=== PATIENT | female | born 1980 | race Caucasian/White ===

== ENCOUNTER → 2020-04-03 09:25 | Outpatient (BNVA) | payer OTHER, SELFPAY | PROVIDERS: PCP Internal Medicine; Referring Provider Internal Medicine; Visit Provider Student in an Organized Health Care Education/Training Program | DX: Z76.89 Persons encountering health services in other specified circumstances (principal) ==

== ENCOUNTER 2020-04-10 11:47 | Outpatient (REF) | payer OTHER, SELFPAY ==
[2020-04-10 13:52] LABS: MANUAL DIFF FLAG NO
[2020-04-10 13:57] LABS: Basophils Absolute Auto 0.1 X10*3/uL (0.0-0.2); Basophils Percent Auto 0.9 % (0-2); Eosinophils Absolute Auto 0.1 X10*3/uL (0.0-0.4); Eosinophils Percent Auto 1.1 % (0-4); Hematocrit 38.2 % (37-47); Hemoglobin 12.1 g/dl (12.0-16.0); Imm Gran Abs Auto 0.01 X10*3/uL (0.00-0.03); Imm Gran Pct Auto 0.2 % (0.0-0.4); Lymphocytes Absolute Auto 1.6 X10*3/uL (1.2-4.9); Mean Corpuscular HGB Conc 31.7 g/dl (31.0-35.0); Mean Corpuscular Hemoglobin 28.4 pg (27.0-33.0); Mean Corpuscular Volume 89.7 fL (80-98); Mean Platelet Volume 11.3 fL (9.4-12.3); Monocytes Absolute Auto 0.5 X10*3/uL (0.1-1.2); Neutrophils Absolute Auto 3.1 X10*3/uL (2.0-8.3); Neutrophils Percent Auto 57.8 % (45-73); Platelet Count 266 X10*3/uL (160-400); Red Blood Count 4.26 X10*6/uL (4.20-5.50); Red Cell Distribution Width 13.6 % (11.0-16.0); White Blood Count 5.4 X10*3/uL (4.8-10.8)
[2020-04-10 14:18] LABS: Glucose Urine UA NEG (NEG); Leukocyte Esterase Urine NEG (NEG); Nitrite Urine NEG (NEG); PH 6.5 (5.0-8.0); Specific Gravity - Urine <= 1.005 (1.005-1.025); Urine Blood NEG (NEG); Urine Ketones NEG (NEG); Urine Protein NEG (NEG-TRACE)
[2020-04-10 14:23] LABS: Appearance Urine CLEAR; Color Urine YELLOW
[2020-04-10 14:29] LABS: Alanine Aminotransferase 8 U/L (0-31); Albumin Level 4.4 g/dL (3.5-5.0); Alkaline Phosphatase 73 U/L (39-117); Anion Gap 13 (12-20); Aspartate Amino Transferase 17 U/L (5-31); Bilirubin Total 0.5 mg/dL (0.0-1.0); Blood Urea Nitrogen 12 mg/dL (9-16); C Reactive Protein 0.11 mg/dL (< or = 0.50); Calcium 8.9 mg/dL (8.4-10.2); Carbon Dioxide 23 mmol/L (22-29); Chloride 106 mmol/L (96-108); Estimated Glomerular Filt Rate > 60; Glucose Random 81 mg/dL (60-115); Potassium 4.2 mmol/l (3.3-5.1); Sodium 138 mmol/L (135-145); Total Protein 8.2 g/dL (6.5-8.0)
[2020-04-10 14:43] LABS: RBC Urine 0 /HPF (0); Squamous Epithelial Cell Urine 1+ /LPF; WBC Urine 0 /HPF (0-4)
[2020-04-10 14:44] LABS: Erythrocyte Sedimentation Rate 12 MM/HR (0-20)
[2020-04-11 13:33] LABS: Anti DNA DS Antibody <1 IU/mL; SM/Ribonucleoprotein Ab <1.0 NEG AI (<1.0 NEG); Smith Protein <1.0 NEG AI (<1.0 NEG)
[2020-04-12 12:33] LABS: Complement C3 111 mg/dL (83-193)
== END 2020-04-10 11:48 | disposition home or self-care (01) ==
LOC: HO.HMGCLDS 11:47
PROVIDERS: PCP Internal Medicine; Visit Provider Student in an Organized Health Care Education/Training Program
DX: R76.8 Other specified abnormal immunological findings in serum (principal)
CPT/HCPCS: 36415; 80053; 81001; 85025; 85652; 86140; 86160; 86225; 86235

== ENCOUNTER → 2020-11-14 10:47 | Outpatient (BNVA) | payer OTHER, SELFPAY | PROVIDERS: PCP Internal Medicine; Visit Provider Student in an Organized Health Care Education/Training Program | DX: R76.8 Other specified abnormal immunological findings in serum (principal); I73.00 Raynaud's syndrome without gangrene; L71.9 Rosacea, unspecified; M79.7 Fibromyalgia | CPT/HCPCS: 99212 ==

== ENCOUNTER 2020-11-15 09:05 | Outpatient (REF) | payer OTHER, SELFPAY ==
[2020-11-15 11:25] LABS: Glucose Urine UA NEG (NEG); Leukocyte Esterase Urine NEG (NEG); Nitrite Urine NEG (NEG); PH 6.5 (5.0-8.0); Specific Gravity - Urine <= 1.005 (1.005-1.025); Urine Blood NEG (NEG); Urine Ketones NEG (NEG); Urine Protein NEG (NEG-TRACE)
[2020-11-15 11:27] LABS: MANUAL DIFF FLAG NO
[2020-11-15 11:29] LABS: Appearance Urine CLEAR; Color Urine STRAW
[2020-11-15 11:34] LABS: RBC Urine 0 /HPF (0); Squamous Epithelial Cell Urine 1+ /LPF; WBC Urine 0 /HPF (0-4)
[2020-11-15 11:39] LABS: Basophils Absolute Auto 0.1 X10*3/uL (0.0-0.2); Basophils Percent Auto 1.2 % (0-2); Eosinophils Absolute Auto 0.1 X10*3/uL (0.0-0.4); Eosinophils Percent Auto 1.2 % (0-4); Hematocrit 37.2 % (37-47); Hemoglobin 11.7 g/dl (12.0-16.0); Lymphocytes Absolute Auto 1.3 X10*3/uL (1.2-4.9); Lymphocytes Percent Auto 33.2 % (20-40); Mean Corpuscular HGB Conc 31.5 g/dl (31.0-35.0); Mean Corpuscular Hemoglobin 27.7 pg (27.0-33.0); Mean Corpuscular Volume 87.9 fL (80-98); Mean Platelet Volume 11.6 fL (9.4-12.3); Monocytes Absolute Auto 0.4 X10*3/uL (0.1-1.2); Neutrophils Absolute Auto 2.1 X10*3/uL (2.0-8.3); Neutrophils Percent Auto 53.4 % (45-73); Platelet Count 259 X10*3/uL (160-400); Red Blood Count 4.23 X10*6/uL (4.20-5.50); Red Cell Distribution Width 14.9 % (11.0-16.0)
[2020-11-15 12:09] LABS: Alanine Aminotransferase 14 U/L (0-31); Albumin Level 4.3 g/dL (3.5-5.0); Alkaline Phosphatase 68 U/L (39-117); Anion Gap 11 (12-20); Aspartate Amino Transferase 21 U/L (5-31); Bilirubin Total 0.5 mg/dL (0.0-1.0); Blood Urea Nitrogen 11 mg/dL (9-16); C Reactive Protein 0.12 mg/dL (< or = 0.50); Calcium 9.4 mg/dL (8.4-10.2); Carbon Dioxide 25 mmol/L (22-29); Chloride 105 mmol/L (96-108); Estimated Glomerular Filt Rate > 60; Glucose Random 87 mg/dL (60-115); Potassium 4.1 mmol/L (3.3-5.1); Sodium 137 mmol/L (135-145)
[2020-11-15 12:35] LABS: Erythrocyte Sedimentation Rate 12 MM/HR (0-20)
[2020-11-16 12:11] LABS: Lyme Abs Screen <0.90 index
[2020-11-16 14:27] LABS: Complement C3 53 mg/dL (83-193)
[2020-11-16 15:20] LABS: Anti DNA DS Antibody <1 IU/mL; SM/Ribonucleoprotein Ab <1.0 NEG AI (<1.0 NEG); Smith Protein <1.0 NEG AI (<1.0 NEG)
[2020-11-20 13:35] LABS: Vitamin D 25-OH, D2 <4 ng/mL; Vitamin D 25-OH, D3 34 ng/mL; Vitamin D 25-OH, Total 34 ng/mL (30-100)
== END 2020-11-15 09:06 | disposition home or self-care (01) ==
LOC: HO.HMGCLDS 09:05
PROVIDERS: PCP Internal Medicine; Visit Provider Student in an Organized Health Care Education/Training Program
DX: R76.8 Other specified abnormal immunological findings in serum (principal)
CPT/HCPCS: 36415; 80053; 81001; 82306; 84443; 85025; 85652; 86140; 86160; 86225; 86235; 86617; 86618

== ENCOUNTER 2022-03-07 06:15 | Outpatient (REF) | payer OTHER, SELFPAY ==
[2022-03-07 11:28] LABS: MANUAL DIFF FLAG NO
[2022-03-07 11:38] LABS: Appearance Urine Clear; Color Urine Yellow; Glucose Urine UA Negative (Negative); Leukocyte Esterase Urine Negative (Negative); Nitrite Urine Negative (Negative); PH 7.5 (5.0-9.0); Urine Blood Negative (Negative); Urine Ketones Negative (Negative); Urine Protein Negative (Neg-Trace)
[2022-03-07 11:55] LABS: Eosinophils Absolute Auto 0.1 X10*3/uL (0.0-0.4); Eosinophils Percent Auto 1.8 % (0-4); Hematocrit 35.4 % (37.0-47.0); Hemoglobin 11.7 g/dl (12.0-16.0); Lymphocytes Absolute Auto 1.3 X10*3/uL (1.2-4.9); Lymphocytes Percent Auto 33.6 % (20-40); Mean Corpuscular HGB Conc 33.1 g/dl (31.0-35.0); Mean Corpuscular Hemoglobin 29.5 pg (27.0-33.0); Mean Corpuscular Volume 89.4 fL (80.0-98.0); Mean Platelet Volume 11.8 fL (9.4-12.3); Monocytes Absolute Auto 0.5 X10*3/uL (0.1-1.2); Neutrophils Absolute Auto 2.1 x10*3/uL (2.0-8.3); Neutrophils Percent Auto 51.6 % (45-73); Platelet Count 216 X10*3/uL (160-400); Red Blood Count 3.96 X10*6/uL (4.20-5.50); Red Cell Distribution Width 14.8 % (11.0-16.0)
[2022-03-07 12:04] LABS: Alanine Aminotransferase 13 U/L (0-31); Albumin Level 4.2 g/dL (3.5-5.0); Alkaline Phosphatase 60 U/L (39-117); Anion Gap 13 (12-20); Aspartate Amino Transferase 21 U/L (5-31); Bilirubin Total 0.7 mg/dL (0.0-1.0); Blood Urea Nitrogen 13 mg/dL (9-16); Calcium 8.7 mg/dL (8.4-10.2); Carbon Dioxide 23 mmol/L (22-29); Chloride 104 mmol/L (96-108); Cholesterol 170 mg/dL; Estimated Glomerular Filt Rate > 60; Glucose Fasting 82 mg/dL (60-99); HDL Cholesterol 55 mg/dL; LDL Cholesterol Calculated 99 mg/dl; Sodium 136 mmol/L (135-145); Total Protein 7.6 g/dL (6.5-8.0); Triglycerides 82 mg/dL
[2022-03-07 12:27] LABS: TSH reflex Free T4 2.63 uIU/mL (0.32-4.0)
== END 2022-03-07 06:16 | disposition home or self-care (01) ==
LOC: HO.HMGCLDS 06:15
PROVIDERS: PCP Nurse Practitioner Family; Visit Provider Nurse Practitioner Family
DX: Z00.00 Encounter for general adult medical examination without abnormal findings (principal)
CPT/HCPCS: 36415; 80053; 80061; 81003; 84443; 85025

== ENCOUNTER → 2022-03-19 08:07 | Outpatient (BNVA) | payer OTHER, SELFPAY | PROVIDERS: PCP Nurse Practitioner Family; Visit Provider Internal Medicine Endocrinology, Diabetes & Metabolism | DX: E06.3 Autoimmune thyroiditis (principal) | CPT/HCPCS: 99202 ==

== ENCOUNTER 2022-03-28 07:15 | Outpatient (REF) | payer OTHER, SELFPAY ==
--- NOTE | ~2022-03-28 | MR_ITS ---
EXAMINATION: MR BRAIN WITHOUT CONTRAST CLINICAL INFORMATION: Migraine COMPARISON: None TECHNIQUE: Multiplanar multisequence MR imaging of the brain was obtained without intravenous contrast. FINDINGS: There is no acute infarct on diffusion-weighted imaging. There is no intracranial hemorrhage on iron-sensitive imaging. No extra-axial collection or mass effect/herniation. There are several scattered foci of nonspecific supratentorial white matter T2/FLAIR signal abnormality, largest in the left temporal deep white matter No hydrocephalus. The ventricles are normal in morphology and size. The major flow voids at the skull base are preserved. The midline structures are normal. The cerebellar tonsils are normally positioned. The craniocervical junction is normal. Marrow signal is within normal limits. The visualized soft tissues are without significant abnormality. No signal abnormality within the paranasal sinuses or within the mastoid air cells. MR/MR head/brain wo con IMPRESSION: 1. Several scattered foci of supratentorial white matter T2/FLAIR signal abnormality are nonspecific but can be seen in the setting of migraine. 2. Otherwise unremarkable noncontrast MRI of the brain.
[2022-03-28 08:37] LABS: Folate 4.2 ng/mL (> or = 4.0); Vitamin B12 469 pg/mL (200-900)
[2022-04-02 06:34] LABS: Antibody to SS-A Antigen <1.0 NEG AI (<1.0 NEG); Antibody to SS-B Antigen <1.0 NEG AI (<1.0 NEG)
[2022-04-02 16:33] LABS: Arsenic, Blood <3 mcg/L (<23); Lead, Blood <1.0 mcg/dL (<3.5); Mercury, Blood <4 mcg/L (<=10)
[2022-04-03 06:13] LABS: Zinc 79 mcg/dL (60-130)
== END 2022-03-28 07:16 | disposition home or self-care (01) ==
LOC: HO.MRI 07:15
PROVIDERS: PCP Nurse Practitioner Family; Visit Provider Nurse Practitioner Family
DX: G43.909 Migraine, unspecified, not intractable, without status migrainosus (principal); R43.8 Other disturbances of smell and taste
CPT/HCPCS: 36415; 70551; 82175; 82607; 82746; 83655; 83825; 84630; 86235

== ENCOUNTER → 2022-05-09 14:17 | Outpatient (BNVA) | payer OTHER, SELFPAY | PROVIDERS: PCP Nurse Practitioner Family; Visit Provider Nurse Practitioner Family | DX: K92.1 Melena (principal); D64.9 Anemia, unspecified; K64.9 Unspecified hemorrhoids; R14.0 Abdominal distension (gaseous) | CPT/HCPCS: 99202 ==

== ENCOUNTER 2022-05-15 09:53 | Outpatient (REF) | payer OTHER, SELFPAY ==
[2022-05-15 11:26] LABS: Hematocrit 36.2 % (37.0-47.0); Hemoglobin 11.8 g/dl (12.0-16.0); Mean Corpuscular HGB Conc 32.6 g/dl (31.0-35.0); Mean Corpuscular Hemoglobin 28.6 pg (27.0-33.0); Mean Corpuscular Volume 87.9 fL (80.0-98.0); Mean Platelet Volume 11.5 fL (9.4-12.3); Platelet Count 283 X10*3/uL (160-400); Red Blood Count 4.12 X10*6/uL (4.20-5.50); Red Cell Distribution Width 13.7 % (11.0-16.0); White Blood Count 4.6 X10*3/uL (4.8-10.8)
[2022-05-15 11:44] LABS: Lipase 18 U/L (8-78)
[2022-05-19 15:19] LABS: Vitamin D 25-OH, D2 <4 ng/mL; Vitamin D 25-OH, D3 35 ng/mL; Vitamin D 25-OH, Total 35 ng/mL (30-100)
[2022-05-22 16:29] LABS: Transglutaminase Ab IgG <1.0 U/mL; Transglutaminase IgA <1.0 U/mL
== END 2022-05-15 09:54 | disposition home or self-care (01) ==
LOC: HO.HMGCLDS 09:53
PROVIDERS: PCP Nurse Practitioner Family; Visit Provider Nurse Practitioner Family
DX: R10.9 Unspecified abdominal pain (principal); K21.9 Gastro-esophageal reflux disease without esophagitis; E55.9 Vitamin D deficiency, unspecified
CPT/HCPCS: 36415; 82306; 83690; 85027; 86364

== ENCOUNTER → 2022-06-05 14:33 | Outpatient (BNVA) | payer OTHER, SELFPAY | PROVIDERS: PCP Nurse Practitioner Family; Visit Provider Nurse Practitioner Family | DX: G43.009 Migraine without aura, not intractable, without status migrainosus (principal); H53.9 Unspecified visual disturbance; M54.2 Cervicalgia | CPT/HCPCS: 99212 ==

== ENCOUNTER 2022-06-16 07:48 | Outpatient (REF) | payer OTHER, SELFPAY ==
[2022-06-16 10:58] LABS: MANUAL DIFF FLAG NO
[2022-06-16 11:07] LABS: Basophils Absolute Auto 0.1 X10*3/uL (0.0-0.2); Basophils Percent Auto 1.1 % (0-2); Eosinophils Absolute Auto 0.1 X10*3/uL (0.0-0.4); Eosinophils Percent Auto 1.1 % (0-4); Hematocrit 35.1 % (37.0-47.0); Hemoglobin 11.2 g/dl (12.0-16.0); Imm Gran Abs Auto 0.01 X10*3/uL (0.00-0.03); Imm Gran Pct Auto 0.2 % (0.0-0.4); Immature Retic Fraction 15.9 % (3.0-15.9); Lymphocytes Absolute Auto 1.5 X10*3/uL (1.2-4.9); Lymphocytes Percent Auto 31.4 % (20-40); Mean Corpuscular HGB Conc 31.9 g/dl (31.0-35.0); Mean Corpuscular Hemoglobin 28.4 pg (27.0-33.0); Mean Corpuscular Volume 89.1 fL (80.0-98.0); Mean Platelet Volume 11.6 fL (9.4-12.3); Monocytes Absolute Auto 0.6 X10*3/uL (0.1-1.2); Monocytes Percent Auto 11.8 % (2-11); Neutrophils Absolute Auto 2.6 x10*3/uL (2.0-8.3); Neutrophils Percent Auto 54.4 % (45-73); Platelet Count 251 X10*3/uL (160-400); Red Blood Count 3.94 X10*6/uL (4.20-5.50); Retic HGB Equivalent 33.4 pg (30.0-35.0); Reticulocyte Percent 1.3 % (0.5-1.8); White Blood Count 4.7 X10*3/uL (4.8-10.8)
[2022-06-16 11:29] LABS: Iron 90 mcg/dL (30-160); Percent Iron Saturation 32 % (15-50); Total Iron Binding Capacity 280 mcg/dL (228-428); Unsaturated Iron Binding 190 ug/dL
[2022-06-16 12:01] LABS: Ferritin 10 ng/mL (10-250); Folate 3.6 ng/mL (> or = 4.0); Vitamin B12 500 pg/mL (200-900)
== END 2022-06-16 07:49 | disposition home or self-care (01) ==
LOC: HO.HMGCLDS 07:48
PROVIDERS: PCP Nurse Practitioner Family; Visit Provider Nurse Practitioner Family
DX: D64.9 Anemia, unspecified (principal)
CPT/HCPCS: 36415; 82607; 82728; 82746; 83540; 85025; 85045

== ENCOUNTER → 2022-07-24 14:08 | Outpatient (BNVA) | payer OTHER, SELFPAY | PROVIDERS: PCP Nurse Practitioner Family; Visit Provider Student in an Organized Health Care Education/Training Program | DX: M34.9 Systemic sclerosis, unspecified (principal); R06.00 Dyspnea, unspecified; R76.8 Other specified abnormal immunological findings in serum | CPT/HCPCS: 99202; 99212 ==

== ENCOUNTER 2022-07-28 11:35 | Outpatient (REF) | payer OTHER, SELFPAY ==
[2022-07-28 14:05] LABS: MANUAL DIFF FLAG NO
[2022-07-28 14:15] LABS: Appearance Urine Clear; Color Urine Dark Yellow; Glucose Urine UA Negative (Negative); Leukocyte Esterase Urine Moderate (2+) (Negative); Nitrite Urine Negative (Negative); PH 6.5 (5.0-9.0); UMIC TRIGGER UA YES; Urine Blood Negative (Negative); Urine Ketones Negative (Negative); Urine Protein Negative (Neg-Trace)
[2022-07-28 14:17] LABS: Basophils Percent Auto 0.8 % (0-2); Eosinophils Percent Auto 0.8 % (0-4); Hemoglobin 11.6 g/dl (12.0-16.0); Lymphocytes Absolute Auto 1.2 X10*3/uL (1.2-4.9); Lymphocytes Percent Auto 23.4 % (20-40); Mean Corpuscular HGB Conc 33.1 g/dl (31.0-35.0); Mean Corpuscular Hemoglobin 28.7 pg (27.0-33.0); Mean Corpuscular Volume 86.6 fL (80.0-98.0); Mean Platelet Volume 11.2 fL (9.4-12.3); Monocytes Absolute Auto 0.4 X10*3/uL (0.1-1.2); Monocytes Percent Auto 7.7 % (2-11); Neutrophils Absolute Auto 3.3 x10*3/uL (2.0-8.3); Neutrophils Percent Auto 67.3 % (45-73); Platelet Count 315 X10*3/uL (160-400); Red Blood Count 4.04 X10*6/uL (4.20-5.50); Red Cell Distribution Width 13.7 % (11.0-16.0); White Blood Count 4.9 X10*3/uL (4.8-10.8)
[2022-07-28 14:19] LABS: Bacteria Urine 1+ (None Seen); Hyaline Casts Urine 0-2 /LPF (0-2); RBC Urine 0-2 /HPF (0-2)
[2022-07-28 14:31] LABS: Alanine Aminotransferase 10 U/L (0-31); Albumin Level 4.2 g/dL (3.5-5.0); Alkaline Phosphatase 77 U/L (39-117); Anion Gap 9 (12-20); Aspartate Amino Transferase 17 U/L (5-31); Bilirubin Total 0.3 mg/dL (0.0-1.0); Blood Urea Nitrogen 9 mg/dL (9-16); C Reactive Protein 0.22 mg/dL (< or = 0.50); Calcium 8.8 mg/dL (8.4-10.2); Carbon Dioxide 24 mmol/L (22-29); Chloride 107 mmol/L (96-108); Estimated Glomerular Filt Rate > 60; Glucose Random 80 mg/dL (60-115); Potassium 4.1 mmol/L (3.3-5.1); Sodium 136 mmol/L (135-145); Total Protein 7.7 g/dL (6.5-8.0)
[2022-07-28 15:05] LABS: Creatinine Urine 44.54 mg/dL; Total Protein Urine Random < 7 mg/dL (<12)
[2022-07-28 15:22] LABS: Erythrocyte Sedimentation Rate 23 MM/HR (0-20)
[2022-07-29 19:48] LABS: Anti DNA DS Antibody <1 IU/mL; Antibody to SS-A Antigen <1.0 NEG AI (<1.0 NEG); Antibody to SS-B Antigen <1.0 NEG AI (<1.0 NEG); SM/Ribonucleoprotein Ab <1.0 NEG AI (<1.0 NEG); Smith Protein <1.0 NEG AI (<1.0 NEG)
[2022-07-29 23:53] LABS: Prot Elec - Albumin 4.1 g/dL (3.8-4.8); Prot Elec - Alpha1 0.3 g/dL (0.2-0.3); Prot Elec - Alpha2 0.7 g/dL (0.5-0.9); Prot Elec - Beta 1 0.5 g/dL (0.4-0.6); Prot Elec - Beta 2 0.4 g/dL (0.2-0.5); Prot Elec - Gamma 1.8 g/dL (0.8-1.7); Prot Elec - Total Protein 7.7 g/dL (6.1-8.1)
[2022-07-30 12:49] LABS: IgA 234 mg/dL (47-310); IgG 2217 mg/dL (600-1640); IgM 53 mg/dL (50-300)
[2022-07-30 15:35] LABS: Anti Nuclear Antibody Screen NEGATIVE (NEGATIVE)
[2022-07-30 16:59] LABS: Complement C3 111 mg/dL (83-193)
[2022-08-06 12:13] LABS: Centromere Protein A Ab <11 SI (<11); Centromere Protein B Ab <11 SI (<11); Fibrillarin Ab <11 SI (<11); PM SCL 100 Ab <11 SI (<11); PM SCL 75 Ab <11 SI (<11); RNA Polymerase III RP11 Ab <11 SI (<11); RNA Polymerase III RP155 Ab <11 SI (<11); SCL-70 Extractable Nuclear Ab <11 SI (<11); Th-To Ab <11 SI (<11); U1 SNRNP RNP 70KD <11 SI (<11); U1 SNRNP RNP A <11 SI (<11); U1 SNRNP RNP C <11 SI (<11)
== END 2022-07-28 11:36 | disposition home or self-care (01) ==
LOC: HO.HMGCLDS 11:35
PROVIDERS: PCP Nurse Practitioner Family; Visit Provider Student in an Organized Health Care Education/Training Program
DX: M32.9 Systemic lupus erythematosus, unspecified (principal); M34.9 Systemic sclerosis, unspecified
CPT/HCPCS: 36415; 80053; 81001; 82784; 84156; 84165; 84182; 85025; 85652; 86038; 86039; 86140; 86160; 86225; 86235; 86334

== ENCOUNTER → 2022-08-05 09:25 | Outpatient (BNVA) | payer OTHER, SELFPAY | PROVIDERS: PCP Nurse Practitioner Family; Visit Provider Nurse Practitioner Family | DX: K92.1 Melena (principal); D64.9 Anemia, unspecified | CPT/HCPCS: 99212 ==

== ENCOUNTER → 2022-08-19 08:32 | Outpatient (REF) | payer OTHER, SELFPAY ==
--- NOTE | 2022-08-19 08:35 | CA_ITS ---
Transthoracic Echocardiogram Patient (Last, First, Middle): Simi Miranda, Gender: Female Date of : 1980 Age: 41 Procedure Date: 08/19/2022 Procedure Type: Transthoracic Echocardiogram Location: OP Height: 157.48 cm Weight: 56.7 kg BSA: 1.57 m2 Heart Rate: 58 bpm BP: 120 / 80 mmHg Research Chief Engineer: ASHWINI Referring MD: Tova Abbott MD Symptoms: R06.09 - Other forms of dyspnea Study Quality: Good ECG Rhythm: Arrhythmia Conclusions: - The left ventricular systolic function is normal. The calculated ejection fraction is 60% by biplane method. - No obvious valvular pathology seen on this study. Findings Left Ventricle Normal left ventricular cavity size. There is normal left ventricular wall thickness. The left ventricular systolic function is normal. The calculated ejection fraction is 60% by biplane method. There is no evidence of regional wall motion abnormalities. Diastolic function is normal for age. LV peak GLS -19.7% (normal). Right Ventricle Normal right ventricular cavity size and systolic function. Atria Both atria are normal in size. Aortic Valve There is a normal trileaflet aortic valve. There is no aortic valve stenosis. There is no aortic valve regurgitation. Mitral Valve The mitral valve appears normal. There is no mitral valve regurgitation. There is no mitral valve stenosis. Pulmonic Valve The pulmonic valve is likely normal. Tricuspid Valve Normal tricuspid valve structure. There is mild tricuspid valve regurgitation. There is no evidence of pulmonary hypertension. Great Vessels The asc aorta is normal in size. Venous The inferior vena cava is normal in size and collapses greater than 50% with inspiration. Pericardium/Pleural There is no evidence of pericardial effusion. Prior Study Comparison No prior study available for comparison. Recommendations, Care & Conclusions No obvious valvular pathology seen on this study. Measurements 2D Linear Measurements IVSd: 0.57 0.6-0.9/0.6-1.0 cm LVIDd: 4.78 3.9-5.3/4.2-5.9 cm LVIDd Index: 3.04 2.4-3.2/2.2-3.1 cm/m2 LVIDs: 2.81 2.0-3.6 cm LVPWd: 0.60 0.7-1.1 cm LA Diam: 2.80 2.7-3.8/3.0-4.0 cm LAIDs Index: 1.78 1.5-2.3 cm/m2 LV Mass: 105.93 67-162/88-224 g LV Mass Index: 67.47 43-95/49-115 g/m2 LVOT Diam: 1.90 3.0+(-)1.3 cm 2D Systolic Function EF 4C: 59.70 >55% EF 2C: 58.90 >55% EF BiP: 59.90 >55% Mitral Valve MV Pk E: 0.80 MV PK A: 0.80 MV Decel Time: 142.00 E/A: 1.00 E'Lateral: 12.40 E'Medial: 9.46 E/E' Med: 8.40 E/E' Lat: 6.40 PHT: 42.00 MVA PHT: 5.24 Decel Dawson: 5.61 Aortic Valve AoV Pk Domingo: 1.13 AoV Mn Domingo: 0.81 AoV VTI: 0.24 AoV Pk Grad: 5.00 Aov Mn Grad: 3.00 YURIDIA Cont.VTI: 2.47 LVOT LVOT Pk Domingo: 1.02 LVOT Mn Domingo: 0.70 LVOT VTI: 0.21 LVOT Pk Grad: 4.00 LVOT Mn Grad: 2.00 LVOT Diam: 1.90 LVOT Area: 2.84 Diastolic Function MV Pk E: 0.80 MV Pk A: 0.80 E/A: 1.00 E'Medial: 9.46 E/E' Med: 8.40 E' Laterial: 12.40 E/E' Lat: 6.40 Right Ventricle TAPSE (mm): 23.60 TVS' Domingo: 12.10 Tricuspid Valve TR Pk Domingo: 1.85 TR Pk Grad: 14.00 RA Press: 3.00 RVSP: 17.00 Great Vessels Aorta Sinus of Valsalva: 2.80 2.0-3.5 cm Ao Asc: 2.80 2.1-3.4 cm Pulmonary Valve PV Pk Domingo: 0.81 Peak PV Grad: 3.00 Updated in Other Vendor System with Status of Final Rosas Marks MD electronically signed on 08/19/2022 4:18:05 PM with status of Final
== END ==
LOC: HO.CARD 08:32
PROVIDERS: PCP Nurse Practitioner Family; Visit Provider Student in an Organized Health Care Education/Training Program
DX: R06.09 Other forms of dyspnea (principal)
CPT/HCPCS: 93306; 93356

== ENCOUNTER 2022-09-04 12:59 | Day surgery (SDC) | payer OTHER, SELFPAY ==
[2022-09-04 13:49] VITALS: BMI 21.9
--- NOTE | 2022-09-04 13:50 | MHC.SHP ---
Documented by User: Carroll Guillen MD 09/04/22 14:39 Pre-Procedural Eval Section A Date of Service: 09/04/22 Section B Chief Complaint: Hemorrhage of anus and rectum Details of Present Illness: anemia Relevant Family History (Specify if Yes): No Relevant Social History: None Present Medications: see Short Stay Collaborative assessment Medical History: Significant History (Joint hypermobility syndrome involving hand Raynaud's disease without gangrene) History of Previous Operations: Relevant previous surgery/procedure and date(s) (History of hernia repair) Allergies: Allergies Allergy/AdvReac Type Severity Reaction Status Date / Time egg [EGGS] Allergy Severe ANAPHYLAXIS Verified 09/04/22 13:46 nut - unspecified [NUTS] Allergy Severe ANAPHYLAXIS Verified 09/04/22 13:46 SEAFOOD Allergy Severe ANAPHYLAXIS Uncoded 08/05/22 09:44 NSAIDS Allergy Intermediate Rash Uncoded 08/05/22 09:44 Review of Systems Sugical H&P ROS: Negative: Constitution, Cardiovascular, Respiratory, Neurological, Psychiatric, Hem-Onc, Allergic/Immunologic, Gastrointestinal, Genitourinary, Musculoskeletal, Integumentary, Endocrine and Eyes/Ears/Nose/Throat Exam Surgical H&P Exam: Normal: HEENT, Normal: Heart, Normal: Lungs, Normal: Extremities, Normal: Abdomen, Normal: Skin and Normal: Neurological Plan Diagnosis/Plan: Unchanged I have reviewed the history and physical and performed a pertinent physical examination on my patient. No changes have occurred unless specified. Time Spent With Patient Time: Total time managing care of this patient today ____ minutes. Documented by User: Karina Isabel MD 09/04/22 13:59 Pre-Procedural Eval Section A Date of Service: 09/04/22 Section B Chief Complaint: Hemorrhage of anus and rectum
[2022-09-04 13:58] LABS: UPreg QC Valid YES; Urine Pregnancy NEGATIVE (NEGATIVE)
--- NOTE | 2022-09-04 14:00 | HO.ANESPROP2 ---
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 Raynaud's disease without gangrene Family History Family History Father Lupus Rheumatoid arthritis Hypertension Mother Osteoporosis Paternal Grandmother Primary generalized (osteo)arthritis Sister Meningioma All's disease Son Autism Brother Hypertension Mild hypercholesterolemia Sister Hypertension Mild hypercholesterolemia Family history of problems with anesthesia: No Surgical History Surgical History (Updated 09/04/22 @ 13:48 by Aruna Keating RN) History of hernia repair Hx of section Hx of esophagogastroduodenoscopy History of Problems with Anesthesia: No Social History Social History Household Members: Spouse Household Members Other:: son Housing: House Alcohol intake: current Alcohol intake frequency: holidays/special occasions only Patient Tobacco Use Status: Never used Tobacco e-Cigarette/Vaping Use: Never Used Second Hand Smoke Exposure: No Use of substances other than those prescribed or required for medical reasons: No Are you DNR?: No Advance Directives: No Advance Directives Information Provided: Yes service: No Current occupational status: unemployed Cognitive needs: No Hearing needs: No Vision needs: No Meds Allergies Allergy/AdvReac Type Severity Reaction Status Date / Time egg [EGGS] Allergy Severe ANAPHYLAXIS Verified 09/04/22 13:46 nut - unspecified [NUTS] Allergy Severe ANAPHYLAXIS Verified 09/04/22 13:46 SEAFOOD Allergy Severe ANAPHYLAXIS Uncoded 08/05/22 09:44 NSAIDS Allergy Intermediate Rash Uncoded 08/05/22 09:44 Home Medications Medication Instructions Recorded Confirmed Last Taken Type acetaminophen 325 mg tablet 325 mg PO QID PRN 04/03/20 07/24/22 Unknown History (Tylenol) magnesium oxide 500 mg capsule 500 mg PO DAILY 07/24/22 07/24/22 Unknown History riboflavin (vitamin B2) 400 mg 400 mg PO DAILY 07/24/22 07/24/22 Unknown History tablet Exam Exam Date and Time: September 04, 2022 1400 Height,Weight and Vital Signs: Height 5 ft 2 in Weight 54.431 kg Pertinent Lab Results Pertinent Lab Results: Laboratory Tests 09/04/22 13:40 Urine Test NEGATIVE Airway Mallampati Class: I TM Dist: >3cm Neck ROM: Full Loose/Missing/Broken Teeth: No Heart: rr Lungs: cta Assessment and Plan Assessment Anesthesia Assessment: Anesthesia Plan Discussed and Chart Reviewed Final Anesthetic Review Family History of Problems with Anesthesia: No History of Problems with Anesthesia: No NPO: Yes ASA Class: II Final Preanesthetic Review: No Changes in Pt Med Stat, Meds/Allgs Chart Reviewed, Consent Obtained/Reviewed and Anes Risks/Benef Reviewed Patient Risk: Low Procedure Risk: Low Anesthetic Plan Anesthetic Plan: MAC: Disposition: Standard PACU
[2022-09-04 14:07] VITALS: BP 128/60; PULSE 76; RESP 15; TEMP 36.7; O2SAT 98
[2022-09-04] MEDS: Lactated Ringers 1,000 ML 50 ML IVCONT (14:13)
--- NOTE | 2022-09-04 14:39 | P.OP_ITS ---
Operative Note Operative Note Date of Service: 09/04/22 Narrative: Operative Information Procedure Description: Colonoscopy Indication: anemia, rectal bleeding Anesthesia: MAC (using ketamine and versed, due to egg allergy) COLONOSCOPY Instrument: Olympus variable stiffness pediatric scope 190L Colonoscopy Monitoring: Vital signs and clinical assessment, continuous EKG monitoring, Pulse oximetry, Carbon Dioxide monitoring and blood pressure monitoring were done throughout the procedure. Colon withdrawal time was 6 minutes. Procedure: The patient was placed in the left lateral decubitis position and pre-procedure medications were administered. After a digital rectal examination of the ano-rectum, the video colonoscope was inserted into the rectum and advanced through the colon to the cecum/TI. The colonoscope was slowly withdrawn in a retrograde panoramic fashion and the colon mucosa was carefully examined including a retroflexed view of the rectum. Findings and interventions are described below. Procedure Difficulty: easy, tortuous colon Findings: Terminal Ileum-normal Cecum:normal Ascending Colon: normal Transverse Colon -normal Descending Colon:normal Sigmoid Colon: normal Rectum: Retroflexion with medium sized inflammed internal hemorrhoids, grade II Anorectum - normal Colon preparation: [place] Bowel Preparation Scale Right colon; 3 Transverse colon: 3 Left colon; 3 (0 = Unprepared colon segment with mucosa not seen due to solid stool that cannot be cleared. 1 = Portion of mucosa of the colon segment seen, but other areas of the colon segment not well seen due to staining, residual stool and/or opaque liquid. 2 = Minor amount of residual staining, small fragments of stool and/or opaque liquid, but mucosa of colon segment seen well. 3 = Entire mucosa of colon segment seen well with no residual staining, small fragments of stool or opaque liquid) Impression and Post Procedure Diagnosis: internal hemorrhoids tortuous colon Plan: High fiber diet leaflet Avoid straining at stool, epsom salts and sitz bath, anusol supps or cream Repeat Colonoscopy in 10 years or earlier if clinically indicated Above findings were reviewed with the patient and relevant handouts were provided if indicated.
[2022-09-04 14:43] VITALS: BP 133/70; PULSE 97; RESP 16; TEMP 36.3; O2SAT 99
[2022-09-04 14:58] VITALS: BP 121/67; PULSE 115; RESP 12; O2SAT 99
[2022-09-04 15:13] VITALS: BP 114/65; PULSE 88; RESP 11; O2SAT 99
[2022-09-04 15:28] VITALS: BP 115/61; PULSE 72; RESP 12; O2SAT 99
[2022-09-04 15:43] VITALS: BP 118/65; PULSE 83; RESP 14; O2SAT 99
== END 2022-09-04 15:55 | disposition home or self-care (01) ==
PROVIDERS: Anesthesiology; PCP Internal Medicine Gastroenterology; Visit Provider Internal Medicine Gastroenterology
PROC: 0DJD8ZZ Inspection of Lower Intestinal Tract, Via Natural or Artificial Opening Endoscopic (ICD-10-PCS; CPT 45378; principal; 2022-09-04 15:20)
DX: K62.5 Hemorrhage of anus and rectum (principal); D64.9 Anemia, unspecified; K64.1 Second degree hemorrhoids; Q43.8 Other specified congenital malformations of intestine; E06.3 Autoimmune thyroiditis; I73.00 Raynaud's syndrome without gangrene; M35.7 Hypermobility syndrome; Z79.899 Other long term (current) drug therapy; Z88.8 Allergy status to other drugs, medicaments and biological substances; Z91.012 Allergy to eggs; Z91.018 Allergy to other foods; Z91.013 Allergy to seafood
CPT/HCPCS: 45378; 81025; J2250; J3010

== ENCOUNTER 2022-09-15 09:37 | Outpatient (REF) | payer OTHER, SELFPAY ==
[2022-09-15 09:52] LABS: MANUAL DIFF FLAG NO
[2022-09-15 10:15] LABS: Basophils Absolute Auto 0.1 X10*3/uL (0.0-0.2); Basophils Percent Auto 1.1 % (0-2); Eosinophils Absolute Auto 0.1 X10*3/uL (0.0-0.4); Eosinophils Percent Auto 1.1 % (0-4); Hematocrit 36.6 % (37.0-47.0); Hemoglobin 11.8 g/dl (12.0-16.0); Imm Gran Abs Auto 0.01 X10*3/uL (0.00-0.03); Imm Gran Pct Auto 0.2 % (0.0-0.4); Immature Retic Fraction 9.6 % (3.0-15.9); Lymphocytes Absolute Auto 1.5 X10*3/uL (1.2-4.9); Lymphocytes Percent Auto 33.6 % (20-40); Mean Corpuscular HGB Conc 32.2 g/dl (31.0-35.0); Mean Corpuscular Hemoglobin 27.7 pg (27.0-33.0); Mean Corpuscular Volume 85.9 fL (80.0-98.0); Mean Platelet Volume 11.2 fL (9.4-12.3); Monocytes Absolute Auto 0.5 X10*3/uL (0.1-1.2); Monocytes Percent Auto 11.3 % (2-11); Neutrophils Absolute Auto 2.3 x10*3/uL (2.0-8.3); Neutrophils Percent Auto 52.7 % (45-73); Platelet Count 230 X10*3/uL (160-400); Red Blood Count 4.26 X10*6/uL (4.20-5.50); Red Cell Distribution Width 13.9 % (11.0-16.0); Retic HGB Equivalent 28.5 pg (30.0-35.0); Reticulocyte Percent 0.7 % (0.5-1.8); White Blood Count 4.4 X10*3/uL (4.8-10.8)
[2022-09-15 10:50] LABS: Appearance Urine Clear; Color Urine Yellow; Glucose Urine UA Negative (Negative); Leukocyte Esterase Urine Small (1+) (Negative); Nitrite Urine Negative (Negative); PH 7.5 (5.0-9.0); Specific Gravity - Urine <= 1.005 (1.005-1.025); UMIC TRIGGER UACC YES; Urine Blood Negative (Negative); Urine Ketones Negative (Negative); Urine Protein Negative (Neg-Trace)
[2022-09-15 10:57] LABS: Bacteria Urine 1+ (None Seen); Hyaline Casts Urine 0-2 /LPF (0-2); RBC Urine 0-2 /HPF (0-2); Squamous Epithelial Cell Urine 0-2 /HPF (0-2); UACC Culture Trigger YES; WBC Urine 0-5 /HPF (0-5)
[2022-09-15 11:05] LABS: Alanine Aminotransferase 12 U/L (0-31); Albumin Level 4.3 g/dL (3.5-5.0); Alkaline Phosphatase 60 U/L (39-117); Anion Gap 11 (12-20); Aspartate Amino Transferase 17 U/L (5-31); Bilirubin Total 0.6 mg/dL (0.0-1.0); Blood Urea Nitrogen 11 mg/dL (9-16); Calcium 9.3 mg/dL (8.4-10.2); Carbon Dioxide 25 mmol/L (22-29); Chloride 108 mmol/L (96-108); Estimated Glomerular Filt Rate > 60; Glucose Random 92 mg/dL (60-115); Iron 78 mcg/dL (30-160); Percent Iron Saturation 25 % (15-50); Potassium 4.7 mmol/L (3.3-5.1); Sodium 139 mmol/L (135-145); Total Iron Binding Capacity 314 mcg/dL (228-428); Total Protein 7.8 g/dL (6.5-8.0); Unsaturated Iron Binding 236 ug/dL
[2022-09-15 11:35] LABS: Ferritin 5 ng/mL (10-250); Folate 5.1 ng/mL (> or = 4.0); TSH reflex Free T4 2.08 uIU/mL (0.32-4.0); Vitamin B12 609 pg/mL (200-900)
[2022-09-17 05:39] LABS: Thyroid Peroxidase Antibodies 9 IU/mL (<9)
== END 2022-09-15 09:38 | disposition home or self-care (01) ==
LOC: HO.LAB 09:37
PROVIDERS: PCP Nurse Practitioner Family; Visit Provider Nurse Practitioner Family
DX: E06.3 Autoimmune thyroiditis (principal); K92.1 Melena; D64.9 Anemia, unspecified
CPT/HCPCS: 36415; 80053; 81001; 82607; 82728; 82746; 83540; 84443; 85025; 85045; 86376; 87086; 99212

== ENCOUNTER 2022-10-27 10:35 | Outpatient (REF) | payer OTHER, SELFPAY | END 2022-10-27 10:36 | disposition home or self-care (01) | LOC: HO.HMGCLDS 10:35 | PROVIDERS: PCP Nurse Practitioner Family; Visit Provider Nurse Practitioner Family | DX: D64.9 Anemia, unspecified (principal) | CPT/HCPCS: 36415; 80053; 82728; 83540; 84443; 85025; 85045 ==

== ENCOUNTER → 2022-11-17 14:25 | Outpatient (BNV) | payer OTHER, SELFPAY | PROVIDERS: PCP Nurse Practitioner Family; Visit Provider Internal Medicine | DX: D50.9 Iron deficiency anemia, unspecified (principal) | CPT/HCPCS: 99204 ==

== ENCOUNTER 2022-11-29 08:13 | Outpatient (REF) | payer OTHER, SELFPAY ==
[2022-11-29 11:16] LABS: Basophils Percent Auto 1.1 % (0-2); Eosinophils Absolute Auto 0.1 X10*3/uL (0.0-0.4); Eosinophils Percent Auto 1.3 % (0-4); Hematocrit 36.4 % (37.0-47.0); Hemoglobin 11.6 g/dl (12.0-16.0); Imm Gran Abs Auto 0.03 X10*3/uL (0.00-0.03); Imm Gran Pct Auto 0.8 % (0.0-0.4); Immature Retic Fraction 6.7 % (3.0-15.9); Lymphocytes Absolute Auto 1.4 X10*3/uL (1.2-4.9); Lymphocytes Percent Auto 36.1 % (20-40); MANUAL DIFF FLAG NO; Mean Corpuscular HGB Conc 31.9 g/dl (31.0-35.0); Mean Corpuscular Hemoglobin 28.1 pg (27.0-33.0); Mean Corpuscular Volume 88.1 fL (80.0-98.0); Mean Platelet Volume 11.5 fL (9.4-12.3); Monocytes Absolute Auto 0.4 X10*3/uL (0.1-1.2); Monocytes Percent Auto 10.7 % (2-11); Neutrophils Absolute Auto 1.9 x10*3/uL (2.0-8.3); Platelet Count 264 X10*3/uL (160-400); Red Blood Count 4.13 X10*6/uL (4.20-5.50); Red Cell Distribution Width 16.7 % (11.0-16.0); Retic HGB Equivalent 31.8 pg (30.0-35.0); Reticulocytes Absolute 0.042 X10*6/uL (0.026-0.095); White Blood Count 3.7 X10*3/uL (4.8-10.8)
[2022-11-29 11:40] LABS: Iron 62 mcg/dL (30-160); Percent Iron Saturation 22 % (15-50); Total Iron Binding Capacity 284 mcg/dL (228-428); Unsaturated Iron Binding 222 ug/dL
[2022-11-29 11:58] LABS: Ferritin 10 ng/mL (10-250)
== END 2022-11-29 08:14 | disposition home or self-care (01) ==
LOC: HO.HMGCLDS 08:13
PROVIDERS: Internal Medicine; PCP Nurse Practitioner Family; Visit Provider Nurse Practitioner Family
DX: D64.9 Anemia, unspecified (principal)
CPT/HCPCS: 36415; 82728; 83540; 85025; 85045

== ENCOUNTER 2023-04-22 07:54 | Outpatient (AMB) | payer OTHER, SELFPAY ==
--- NOTE | 2023-04-22 07:55 | A.OFFPC_ITS ---
Vital Signs 04/22/23 07:59 Height 5 ft 2 in Weight 121 lb 2 oz BMI 22.2 BP 108/70 Blood Pressure Location Rt brachial Position Sitting Pulse 71 Pulse Source Pulse Oximeter Pulse Oximetry (%) 99 Oxygen Delivery Method Room Air Intake Visit Reasons: PE Intake Note: Patient here for physical exam and would like to mention that she was diagnosed with stage 1 breast cancer. Allergies nut - unspecified [NUTS] Allergy (Severe, Verified 04/22/23 08:01) ANAPHYLAXIS latex Allergy (Verified 04/22/23 08:01) Itching SEAFOOD Allergy (Severe, Uncoded 04/22/23 08:01) ANAPHYLAXIS NSAIDS Allergy (Intermediate, Uncoded 04/22/23 08:01) Rash Tobacco use date assessed: 10/06/22 Dental Screening Dental Screen Date: 04/22/23 Did you have a dental visit in the last 12 months?: Yes Did you have a dental problem in the last 6 months where you did not have access to dental care?: No Was dental information given to patient?: Patient has dentist HPI PE HPI Details Pt is here for a PE. Will order labs. Colon screen is up to date. 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 Mammo is up to date. Pt was recently diagnosed with stage 1 breast cancer. She is following up with oncology today. 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 Raynaud's disease without gangrene Surgical History Hx of colonoscopy Hx of section Hx of esophagogastroduodenoscopy History of hernia repair Family History Father Lupus Rheumatoid arthritis Hypertension Mother Osteoporosis Paternal Grandmother Primary generalized (osteo)arthritis Sister Meningioma All's disease Son Autism Brother Hypertension Mild hypercholesterolemia Sister Hypertension Mild hypercholesterolemia Social History Household Members: Spouse and Children Household Members Other:: son Housing: House Alcohol intake: current Alcohol intake frequency: holidays/special occasions only Patient Tobacco Use Status: Never used Tobacco e-Cigarette/Vaping Use: Never Used Second Hand Smoke Exposure: No service: No Current occupational status: employed and unemployed Cognitive needs: No Hearing needs: No Vision needs: No Questionnaire PHQ-9 Over the last 2 weeks, how often have you been bothered by any of the following problems? 1. Little interest or pleasure in doing things: not at all 2. Feeling down, depressed, or hopeless: not at all 3. Trouble falling or staying asleep, or sleeping too much: not at all 4. Feeling tired or having little energy: nearly every day 5. Poor appetite or overeating: not at all 6. Feeling bad about yourself - or that you are a failure or have let yourself or your family down: not at all 7. Trouble concentrating on things, such as reading the newspaper or watching television: several days 8. Moving or speaking so slowly that other people could have noticed. Or the opp osite - being so fidgety or restless that you have been moving around a lot more than usual: not at all 9. Thoughts that you would be better off or of hurting yourself in some way: not at all Total score: 4 Depression Screening Interpretation: Negative Depression Screening Done: Yes [address]70 - PHQ-9 Billing: Yes Source: Developed by Drs. David Georges, Deepika Rubi, Yonathan Bryant and colleagues, with an educational nancy from [employer]. Thrive Questionnaire Date Thrive assessed: 04/22/23 I am a: Patient What is your living situation today?: I have a steady place to live Within the past 12 months, did the food you bought not last and you didn't have the money to get more?: Never true Within the past 12 months, did you worry whether your food would run out before you got money to buy more?: Never true Do you have trouble paying for medicines?: No Do you have trouble getting transportation to medical appointments?: No Do you have trouble paying your heating and electricity bill?: No Do you have trouble taking care of your child, family member or friend?: No Do you have trouble with day-to-day activities such as bathing, preparing meals, shopping, managing finances, etc.?: No Are you currently unemployed and looking for a job?: No Are you interested in more education?: No AUDIT C Alcohol Use Questionnaire (AUDIT-C) 1. How often do you have a drink containing alcohol?: Never 3. How often do you have six or more drinks on one occasion?: Never Total Score: 0 Score Reviewed/Action Taken: No RAFIA-7 AMB Questionnaire RAFIA-7 Date RAFIA - 7 assessed: 04/22/23 Feeling nervous, anxious, or on edge: 1 = Several days Not being able to stop or control worryin = Not at all Worrying too much about different things: 1 = Several days Trouble relaxin = Not at all Being so restless that it is hard to sit still: 0 = Not at all Becoming easily annoyed or irritable: 0 = Not at all Feeling afraid as if something awful might happen: 0 = Not at all Total RAFIA-7 score (0-4 normal; 5-9 mild; 10-14 moderate; 15-21 severe): 2 Source: Developed by Drs. David Georges, Deepika Rubi, Yonathan Bryant and colleagues, with an educational nancy from [employer]. RAFIA-7 Assessment Billing RAFIA-7 Assessment Tool: pt declined-do not bill Review of Systems Const Denies chills and Denies fever(s) Eyes Denies blurry vision ENT Denies vertigo, Denies dizziness and Denies sore throat Card Denies chest pain at rest, Denies chest pain with activity, Denies diaphoresis, Denies dyspnea and Denies dyspnea on exertion Resp Denies cough, Denies dyspnea, Denies dyspnea on exertion and Denies wheezing GI Denies abdominal pain, Denies melena, Denies hematochezia, Denies constipation, Denies diarrhea and Denies loose stools Denies hematuria Musc Denies numbness and Denies tingling Skin/Breast Denies lesions Neuro Denies vertigo, Denies dizziness, Denies numbness and Denies tingling Psych Denies anxiety, Denies depression, Denies homicidal ideation, Denies suicidal ideation and Denies other (substance abuse) Aller/Immun Denies wheezing Physical exam (Primary Care) Vital Signs: Last Vital Signs Pulse 71 04/22/23 07:59 BP 108/70 04/22/23 07:59 Pulse Ox 99 04/22/23 07:59 Oxygen Delivery Method Room Air 04/22/23 07:59 BMI result Body Mass Index 22.2 Tobacco/Smoking Status: Tobacco use Status Tobacco use date assessed 10/06/22 04/22/23 07:58 Patient Tobacco Use Status Never used Tobacco 04/22/23 07:58 e-Cigarette/Vaping Use Never Used 04/22/23 07:58 Depression Screening Interpretation: Negative Thrive Assessment: Date of Thrive Assessment Date Thrive assessed 03/04/22 04/22/23 07:58 Const General: cooperative Nutritional Appearance: well nourished Orientation/consciousness: patient oriented x3 HENMT Head: Yes normal to inspection, Yes normocephalic and Yes atraumatic Ears: TM's normal bilaterally Eyes General: appearance normal, both eyes and all related structures Alignment and Position: alignment normal and position normal Neck Neck: Yes normal visual inspection and Yes no lymphadenopathy Thyroid: Thyroid normal Resp Effort & Inspection: normal respiratory effort Auscultation: clear to auscultation bilaterally Cardio Rate: regular rate Rhythm: regular rhythm Heart sounds: S1 normal heart sound present, S2 normal heart sound present and no murmurs GI Palpation (GI): Soft to palpation and nontender Auscultation: normal bowel sounds Skin Rashes: no rashes Neuro General: patient oriented x3, moves all extremities, no focal motor deficits and deep tendon reflexes 2+ bilaterally Romberg Test: Negative Psych Appearance: grossly normal Mental Status: mental status grossly normal Speech and movement: Normal speech and movement present Affect: normal affect Attitude: cooperative Thought process: Normal thought process present Thought content: Normal thought content present Insight: Good insight present (Psych) Judgement: Good judgement present (Psych) Assessment and Plan Assessment & Plan (1) Physical exam: Code(s): Z00.00 - Encounter for general adult medical examination without abnormal findings Plan: Labs ordered (2) Breast cancer: Code(s): C50.919 - Malignant neoplasm of unspecified site of unspecified female breast Plan The patient agreed to the use of a medical lab scientist for this encounter. Scribed for COLIN Swift by Cher Palomino medical lab scientist, on 04/22/2023 at 08:15 EST. Orders: Orders Complete Blood Count Auto Diff Today Z00.00 - Encounter for general adult medical examination without abnormal findings TSH reflex Free T4 Today Z00.00 - Encounter for general adult medical examination without abnormal findings UA CC w/rflx Micro + Cult Today Z00.00 - Encounter for general adult medical examination without abnormal findings Comprehensive [place]. Panel Fast Today Z00.00 - Encounter for general adult medical examination without abnormal findings Lipid Panel Today Z00.00 - Encounter for general adult medical examination without abnormal findings Coding Level of Care Code Est Pt Prev Care 40-64y(40434) Diagnoses Physical exam Z00.00 Breast cancer C50.919
[2023-04-22 07:59] VITALS: BP 108/70; PULSE 71; O2SAT 99; BMI 22.2
== END 2023-04-22 09:09 | disposition home or self-care (01) ==
PROVIDERS: Visit Provider Nurse Practitioner Family
DX: Z00.00 Encounter for general adult medical examination without abnormal findings (principal); C50.919 Malignant neoplasm of unspecified site of unspecified female breast
CPT/HCPCS: 99396

== ENCOUNTER 2023-05-22 06:13 | Outpatient (REF) | payer OTHER, SELFPAY ==
[2023-05-22 11:30] LABS: Appearance Urine Clear; Color Urine Yellow; Glucose Urine UA Negative (Negative); Leukocyte Esterase Urine Negative (Negative); Nitrite Urine Negative (Negative); Specific Gravity - Urine 1.015 (1.005-1.025); Urine Blood Negative (Negative); Urine Ketones Negative (Negative); Urine Protein Negative (Neg-Trace)
[2023-05-22 11:34] LABS: MANUAL DIFF FLAG NO
[2023-05-22 12:00] LABS: Basophils Absolute Auto 0.1 X10*3/uL (0.0-0.2); Basophils Percent Auto 1.2 % (0-2); Eosinophils Absolute Auto 0.1 X10*3/uL (0.0-0.4); Eosinophils Percent Auto 1.9 % (0-4); Hematocrit 35.5 % (37.0-47.0); Hemoglobin 11.4 g/dl (12.0-16.0); Imm Gran Abs Auto 0.01 X10*3/uL (0.00-0.03); Imm Gran Pct Auto 0.2 % (0.0-0.4); Lymphocytes Absolute Auto 1.2 X10*3/uL (1.2-4.9); Lymphocytes Percent Auto 28.8 % (20-40); Mean Corpuscular HGB Conc 32.1 g/dl (31.0-35.0); Mean Corpuscular Hemoglobin 28.1 pg (27.0-33.0); Mean Corpuscular Volume 87.7 fL (80.0-98.0); Mean Platelet Volume 11.4 fL (9.4-12.3); Monocytes Absolute Auto 0.4 X10*3/uL (0.1-1.2); Monocytes Percent Auto 10.4 % (2-11); Neutrophils Absolute Auto 2.4 x10*3/uL (2.0-8.3); Neutrophils Percent Auto 57.5 % (45-73); Platelet Count 258 X10*3/uL (160-400); Red Blood Count 4.05 X10*6/uL (4.20-5.50); Red Cell Distribution Width 14.6 % (11.0-16.0); White Blood Count 4.2 X10*3/uL (4.8-10.8)
[2023-05-22 12:40] LABS: Alanine Aminotransferase 13 U/L (0-31); Alkaline Phosphatase 59 U/L (39-117); Anion Gap 11 (12-20); Aspartate Amino Transferase 18 U/L (5-31); Bilirubin Total 0.5 mg/dL (0.0-1.0); Blood Urea Nitrogen 14 mg/dL (9-16); Calcium 8.8 mg/dL (8.4-10.2); Carbon Dioxide 24 mmol/L (22-29); Chloride 106 mmol/L (96-108); Cholesterol 198 mg/dL (<200); Estimated Glomerular Filt Rate > 60; Glucose Fasting 78 mg/dL (60-99); HDL Cholesterol 63 mg/dL (>40); LDL Cholesterol Calculated 120 mg/dL (<100); Sodium 137 mmol/L (135-145); TSH reflex Free T4 1.44 uIU/mL (0.32-4.0); Total Protein 7.6 g/dL (6.5-8.0); Triglycerides 75 mg/dL (<150)
== END 2023-05-22 06:14 | disposition home or self-care (01) ==
LOC: HO.HMGCLDS 06:13
PROVIDERS: PCP Nurse Practitioner Family; Visit Provider Nurse Practitioner Family
DX: Z00.00 Encounter for general adult medical examination without abnormal findings (principal)
CPT/HCPCS: 36415; 80053; 80061; 81003; 84443; 85025

== ENCOUNTER 2023-09-29 08:14 | Outpatient (AMB) | payer OTHER, SELFPAY ==
--- NOTE | 2023-09-29 08:17 | A.OFFPC_ITS ---
Vital Signs 09/29/23 08:20 Height 5 ft 2 in Weight 125 lb BMI 22.9 BP 104/68 Blood Pressure Location Rt brachial Position Sitting Pulse 66 Pulse Source Pulse Oximeter Pulse Oximetry (%) 98 Oxygen Delivery Method Room Air Intake Visit Reasons: 6 Month F/U Intake Note: Patient here to f/u after radiation Allergies nut - unspecified [NUTS] Allergy (Severe, Verified 09/29/23 08:42) ANAPHYLAXIS latex Allergy (Verified 09/29/23 08:42) Itching SEAFOOD Allergy (Severe, Uncoded 09/29/23 08:42) ANAPHYLAXIS NSAIDS Allergy (Intermediate, Uncoded 09/29/23 08:42) Rash Medication List - Last Reconciled 09/29/23 by COLIN Albarado acetaminophen (Tylenol) 325 mg PO QID PRN ascorbate calcium (vitamin C) 500 mg PO DAILY cholecalciferol (vitamin D3) 25 mcg PO DAILY epinephrine (EpiPen 2-Gabe) 0.3 mg (0.3 mL) IM Q4H PRN 30 days magnesium oxide 500 mg PO DAILY riboflavin (vitamin B2) 400 mg PO DAILY sumatriptan succinate 50 - 100 mg orally at onset of headache, may repeat in 2 hrs PRN; max 2 tabs per day or 4 tabs/week (may take with Tylenol) 30 days Tobacco use date assessed: 09/29/23 Dental Screening Dental Screen Date: 09/29/23 Did you have a dental visit in the last 12 months?: Yes Did you have a dental problem in the last 6 months where you did not have access to dental care?: No Was dental information given to patient?: Patient has dentist HPI 6 Month F/U HPI Details Pt c/o fatigue (though overall getting better). Pt recently had radiation on 07/05 for breast cancer. Will order labs. Denies fever, chills, and dizziness. She reports she was told it could take a few months before feeling much better. 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 Raynaud's disease without gangrene Surgical History History of lumpectomy of left breast Hx of colonoscopy Hx of section Hx of esophagogastroduodenoscopy History of hernia repair Family History Father Lupus Rheumatoid arthritis Hypertension Mother Osteoporosis Paternal Grandmother Primary generalized (osteo)arthritis Sister Meningioma All's disease Son Autism Brother Hypertension Mild hypercholesterolemia Sister Hypertension Mild hypercholesterolemia Social History (Reviewed 09/29/23 @ 08:41 by GEORGE [facility] Household Members: Spouse and Children Household Members Other:: son Housing: House Alcohol intake: current Alcohol intake frequency: holidays/special occasions only Patient Tobacco Use Status: Never used Tobacco e-Cigarette/Vaping Use: Never Used Second Hand Smoke Exposure: No service: No Current occupational status: employed and unemployed Cognitive needs: No Hearing needs: No Vision needs: No Questionnaire PHQ-9 Over the last 2 weeks, how often have you been bothered by any of the following problems? 1. Little interest or pleasure in doing things: not at all 2. Feeling down, depressed, or hopeless: not at all 3. Trouble falling or staying asleep, or sleeping too much: several days 4. Feeling tired or having little energy: several days 5. Poor appetite or overeating: not at all 6. Feeling bad about yourself - or that you are a failure or have let yourself or your family down: not at all 7. Trouble concentrating on things, such as reading the newspaper or watching television: not at all 8. Moving or speaking so slowly that other people could have noticed. Or the o pposite - being so fidgety or restless that you have been moving around a lot more than usual: not at all 9. Thoughts that you would be better off or of hurting yourself in some way: not at all Total score: 2 Depression Screening Interpretation: Negative Depression Screening Done: Yes 76981 - PHQ-9 Billing: Yes Source: Developed by Drs. David Georges, Deepika Rubi, Yonathan Bryant and colleagues, with an educational nancy from [employer]. Thrive Questionnaire Date Thrive assessed: 09/29/23 I am a: Patient What is your living situation today?: I have a steady place to live Within the past 12 months, did the food you bought not last and you didn't have the money to get more?: Never true Within the past 12 months, did you worry whether your food would run out before you got money to buy more?: Never true Do you have trouble paying for medicines?: No Do you have trouble getting transportation to medical appointments?: No Do you have trouble paying your heating and electricity bill?: No Do you have trouble taking care of your child, family member or friend?: No Do you have trouble with day-to-day activities such as bathing, preparing meals, shopping, managing finances, etc.?: No Are you currently unemployed and looking for a job?: No Are you interested in more education?: No Currently or been in a relationship where the following occur: I choose not to answer this question THRIVE Score: 0 AUDIT C Alcohol Use Questionnaire (AUDIT-C) 1. How often do you have a drink containing alcohol?: 2-4 times a month 2. How many drinks containing alcohol do you have on a typical day when you are drinking?: 1 or 2 3. How often do you have six or more drinks on one occasion?: Never Total Score: 2 Score Reviewed/Action Taken: No RAFIA-7 AMB Questionnaire RAFIA-7 Date RAFIA - 7 assessed: 09/29/23 Feeling nervous, anxious, or on edge: 1 = Several days Not being able to stop or control worryin = Not at all Worrying too much about different things: 0 = Not at all Trouble relaxin = Not at all Being so restless that it is hard to sit still: 0 = Not at all Becoming easily annoyed or irritable: 0 = Not at all Feeling afraid as if something awful might happen: 0 = Not at all Total RAFIA-7 score (0-4 normal; 5-9 mild; 10-14 moderate; 15-21 severe): 1 Source: Developed by Drs. David Georges, Deepika Rubi, Yonathan Bryant and colleagues, with an educational nancy from [employer] RAFIA-7 Assessment Billing RAFIA-7 Assessment Tool: RAFIA-7 Assessment 58472 Review of Systems Const Reports as per HPI Physical exam (Primary Care) Vital Signs: Last Vital Signs Pulse 66 09/29/23 08:20 BP 104/68 09/29/23 08:20 Pulse Ox 98 09/29/23 08:20 Oxygen Delivery Method Room Air 09/29/23 08:20 BMI result Body Mass Index 22.9 Tobacco/Smoking Status: Tobacco use Status Tobacco use date assessed 09/29/23 09/29/23 08:24 Patient Tobacco Use Status Never used Tobacco 09/29/23 08:17 e-Cigarette/Vaping Use Never Used 09/29/23 08:17 Depression Screening Interpretation: Negative Thrive Assessment: Date of Thrive Assessment Date Thrive assessed 04/22/23 09/29/23 08:17 Currently or been in a relationship where the following occur: I choose not to answer this question Const General: cooperative Orientation/consciousness: patient oriented x3 HENMT Other: left ear with cerumen, after ear lavage TM easily seen Resp Effort & Inspection: normal respiratory effort Auscultation: clear to auscultation bilaterally Cardio Rate: regular rate Rhythm: regular rhythm Heart sounds: S1 normal heart sound present and S2 normal heart sound present Neuro General: patient oriented x3 Psych Appearance: grossly normal Mental Status: mental status grossly normal Speech and movement: Normal speech and movement present Affect: normal affect Attitude: cooperative Thought process: Normal thought process present Thought content: Normal thought content present Insight: Good insight present (Psych) Judgement: Good judgement present (Psych) Office Procedures Cerumen Removal From which ear canal was the cerumen removed: left Removal: irrigation Notes: patient tolerated procedure well, no complications and ear canal clear [id number] Irrigation/Lavage Assessment and Plan Assessment & Plan (1) Fatigue: Code(s): R53.83 - Other fatigue Plan: Labs ordered (2) Breast cancer: Code(s): C50.919 - Malignant neoplasm of unspecified site of unspecified female breast Plan: was seeing oncology, no longer, mammograms scheduled. (3) Cerumen impaction: Code(s): H61.20 - Impacted cerumen, unspecified ear Plan: after ear lavage Plan The patient agreed to the use of a medical or surgical instrument maker for this encounter. Scribed for COLIN Swift by danae Moran scribe, on 09/29/2023 at 08:30 EST. Orders: Orders Comprehensive Met. Panel Today R53.83 - Other fatigue TSH reflex Free T4 Today R53.83 - Other fatigue UA CC w/rflx Micro + Cult Today R53.83 - Other fatigue Thyroid Peroxidase Antibodies Today R53.83 - Other fatigue Complete Blood Count Auto Diff Today R53.83 - Other fatigue IRON PROFILE Today R53.83 - Other fatigue Ferritin Today R53.83 - Other fatigue Vitamin B12 and Folate Today R53.83 - Other fatigue Vitamin D 25-OH Total Today R53.83 - Other fatigue Coding Level of Care Code Est Pt Level 3 (54379) Diagnoses Fatigue R5. Breast cancer C50.919 Cerumen impaction H61.20 CPT Codes Office Procedure - CPT: 50576-Aic Irrigation/Lavage ([id number]) Additional Codes RAFIA-7 Assessment Billing - RAFIA-7 Assessment Tool: RAFIA-7 Assessment 41340 ([id number])
[2023-09-29 08:20] VITALS: BP 104/68; PULSE 66; O2SAT 98; BMI 22.9
== END 2023-09-29 09:05 | disposition home or self-care (01) ==
PROVIDERS: PCP Nurse Practitioner Family; Visit Provider Nurse Practitioner Family
DX: R53.83 Other fatigue (principal); C50.919 Malignant neoplasm of unspecified site of unspecified female breast; H61.22 Impacted cerumen, left ear
CPT/HCPCS: 69209; 99213

== ENCOUNTER 2023-09-29 09:00 | Outpatient (REF) | payer OTHER, SELFPAY ==
[2023-09-29 10:31] LABS: Appearance Urine Clear; Color Urine Yellow; Glucose Urine UA Negative (Negative); Leukocyte Esterase Urine Negative (Negative); Nitrite Urine Negative (Negative); Specific Gravity - Urine <= 1.005 (1.005-1.025); Urine Blood Negative (Negative); Urine Ketones Negative (Negative); Urine Protein Negative (Neg-Trace)
[2023-09-29 10:40] LABS: MANUAL DIFF FLAG NO
[2023-09-29 10:51] LABS: Basophils Absolute Auto 0.1 X10*3/uL (0.0-0.2); Basophils Percent Auto 1.4 % (0-2); Eosinophils Absolute Auto 0.1 X10*3/uL (0.0-0.4); Eosinophils Percent Auto 1.4 % (0-4); Hematocrit 36.7 % (37.0-47.0); Imm Gran Abs Auto 0.01 X10*3/uL (0.00-0.03); Imm Gran Pct Auto 0.2 % (0.0-0.4); Lymphocytes Absolute Auto 0.9 X10*3/uL (1.2-4.9); Lymphocytes Percent Auto 22.7 % (20-40); Mean Corpuscular HGB Conc 32.7 g/dl (31.0-35.0); Mean Corpuscular Hemoglobin 29.4 pg (27.0-33.0); Mean Platelet Volume 11.1 fL (9.4-12.3); Monocytes Absolute Auto 0.5 X10*3/uL (0.1-1.2); Monocytes Percent Auto 12.3 % (2-11); Neutrophils Absolute Auto 2.6 x10*3/uL (2.0-8.3); Platelet Count 236 X10*3/uL (160-400); Red Blood Count 4.08 X10*6/uL (4.20-5.50); Red Cell Distribution Width 14.1 % (11.0-16.0); White Blood Count 4.1 X10*3/uL (4.8-10.8)
[2023-09-29 11:16] LABS: Alanine Aminotransferase 13 U/L (0-31); Albumin Level 4.1 g/dL (3.5-5.0); Alkaline Phosphatase 64 U/L (39-117); Anion Gap 13 (12-20); Aspartate Amino Transferase 21 U/L (5-31); Bilirubin Total 0.4 mg/dL (0.0-1.0); Blood Urea Nitrogen 9 mg/dL (9-16); Calcium 9.1 mg/dL (8.4-10.2); Carbon Dioxide 24 mmol/L (22-29); Chloride 106 mmol/L (96-108); Estimated Glomerular Filt Rate > 60; Glucose Random 86 mg/dL (60-115); Iron 75 mcg/dL (30-160); Percent Iron Saturation 25 % (15-50); Sodium 139 mmol/L (135-145); Total Iron Binding Capacity 296 mcg/dL (228-428); Total Protein 7.5 g/dL (6.5-8.0); Unsaturated Iron Binding 221 ug/dL
[2023-09-29 11:36] LABS: Ferritin 10 ng/mL (10-250); TSH reflex Free T4 1.31 uIU/mL (0.32-4.0); Vitamin D 25-OH Total 39.6 ng/mL (>30)
[2023-09-29 12:02] LABS: Folate 6.8 ng/mL (> or = 4.0); Vitamin B12 588 pg/mL (200-900)
[2023-09-30 21:33] LABS: Thyroid Peroxidase Antibodies 152 IU/mL (<9)
== END 2023-09-29 09:01 | disposition home or self-care (01) ==
LOC: HO.HMGCLDS 09:00
PROVIDERS: PCP Nurse Practitioner Family; Visit Provider Nurse Practitioner Family
DX: R53.83 Other fatigue (principal)
CPT/HCPCS: 36415; 80053; 81003; 82306; 82607; 82728; 82746; 83540; 84443; 85025; 86376

== ENCOUNTER 2024-02-04 12:39 | Outpatient (AMB) | payer OTHER, SELFPAY ==
--- NOTE | 2024-02-04 12:54 | MHC.OFFVIS ---
Vital Signs 02/04/24 12:58 Height 5 ft 2 in Weight 126 lb 8.725 oz BMI 23.1 BP 112/70 Blood Pressure Location Lt brachial Position Sitting Pulse 76 Pulse Source Pulse Oximeter Pulse Oximetry (%) 98 Oxygen Delivery Method Room Air Intake Visit Reasons: Follow up Intake Note: Patient presents for MARILIN + follow up. Allergies nut - unspecified [NUTS] Allergy (Severe, Verified 02/04/24 12:57) ANAPHYLAXIS latex Allergy (Verified 02/04/24 12:57) Itching SEAFOOD Allergy (Severe, Uncoded 09/29/23 08:42) ANAPHYLAXIS NSAIDS Allergy (Intermediate, Uncoded 09/29/23 08:42) Rash Medication List - Last Reconciled 02/04/24 by Tova Abbott MD acetaminophen (Tylenol) 325 mg PO QID PRN ascorbate calcium (vitamin C) 500 mg PO DAILY epinephrine (EpiPen 2-Gabe) 0.3 mg (0.3 mL) IM Q4H PRN 30 days magnesium oxide 500 mg PO DAILY riboflavin (vitamin B2) 400 mg PO DAILY sumatriptan succinate 50 - 100 mg orally at onset of headache, may repeat in 2 hrs PRN; max 2 tabs per day or 4 tabs/week (may take with Tylenol) 30 days HPI Comments Details: This is 43-year-old female with a past medical history of Raynaud's and positive MARILIN who presents for follow-up. Last seen by me 07/2022. At that time comprehensive serology was ordered and patient did not follow-up afterwards. She states that she has been busy, she was diagnosed with left breast cancer, she had lumpectomy followed by radiation. She is cancer free as far as she knows. She states that she is doing reasonably well otherwise. She states that she gets intermittent joint pains but no significant swelling. The pain does not last long. Has not had any unexplained fevers, weight loss. Per Dr. Srivastava's note 40yoF presents for follow-up of a +MARILIN. MARILIN 1:1280 nucleolar pattern. Patient reports worsening symptoms of diffuse arthralgia. She states that her skin has become sensitive to touch and she has worsening fatigue. Has good days and bad days with her symptoms. She denies any joint swelling. Continues to get intermittent Raynaud's attacks in her fingers and toes but states it is not severe. Has had oral ulcers on couple of occasions, they have been both painful and painless. No nasal ulcers. No fevers. Initial history: Patient reports arthralgia and myalgia that began a few years ago and has been worsening. Pt has a different kind of pain daily in different parts of her body. Pain is worse at night. Reports pain in her toes, MCPS, PIPs and DIPs. Hand pain is equal in all joints. Pain is generally worse with activity and better with rest. Has diffuse AM stiffness that lasts approx 30 minutes. No joint swelling. Does not like to take medication but will use Tylenol for headaches. Has alternating diarrhea and constipation. + photosensitivity on face + raynauds on fingers and toes for 5 years, no history of digital ulcers + history of GERD that resolved after hernia repair + painful oral ulcers in cheeks and inner lower lip + dry mouth Denies nasal ulcers, dry eyes, SOB. No history of miscarriages. Father has SLE. No family history of RA. 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 Raynaud's disease without gangrene Surgical History History of lumpectomy of left breast Hx of colonoscopy Hx of section Hx of esophagogastroduodenoscopy History of hernia repair Family History Father Lupus Rheumatoid arthritis Hypertension Mother Osteoporosis Paternal Grandmother Primary generalized (osteo)arthritis Sister Meningioma All's disease Son Autism Brother Hypertension Mild hypercholesterolemia Sister Hypertension Mild hypercholesterolemia Social History Household Members: Spouse and Children Household Members Other:: son Housing: House Alcohol intake: current Alcohol intake frequency: holidays/special occasions only Patient Tobacco Use Status: Never used Tobacco e-Cigarette/Vaping Use: Never Used Second Hand Smoke Exposure: No service: No Current occupational status: employed and unemployed Cognitive needs: No Hearing needs: No Vision needs: No Female Reproductive History Menstrual Total pregnancies: 1 Ab spontaneous: 1 Review of Systems Const Denies fever(s) and Denies weight loss Card Denies dyspnea Resp Denies dyspnea Musc Denies arthralgias and Denies joint swelling Physical Exam Vital Signs: Last Vital Signs Pulse 76 02/04/24 12:58 BP 112/70 02/04/24 12:58 Pulse Ox 98 02/04/24 12:58 Oxygen Delivery Method Room Air 02/04/24 12:58 BMI result Body Mass Index 23.1 Const General: cooperative, healthy appearing and comfortable Nutritional Appearance: average body habitus Orientation/consciousness: patient oriented x3 Limitations: no limitations HEENT Head: Yes normocephalic and Yes atraumatic Mouth: moist mucous membranes Resp Effort & Inspection: normal respiratory effort and able to speak in complete sentences Auscultation: clear to auscultation bilaterally Cardio Rate: regular rate Rhythm: regular rhythm Heart sounds: S1 normal heart sound present and S2 normal heart sound present GI Inspection: No distended Palpation (GI): Soft to palpation and nontender Skin General skin exam: no rashes or lesions noted Neuro General: patient oriented x3 Extrem Other: Hyperextensible thumbs and PIPs Subtle osteoarthritic changes of both hands Normal nailfold capillaroscopy No active synovitis Assessment & Plan Assessment & Plan (1) MARILIN positive: Code(s): R76.8 - Other specified abnormal immunological findings in serum Category: Medical Plan: This is a 43-year-old female with a past medical history of Raynaud's, positive MARILIN 1-1280 nucleolar pattern, intermittently low complements, positive family history of SLE and RA in her father who presents for follow-up. Upon evaluation there is no active synovitis. No signs of active autoimmune rheumatic disease. Comprehensive serology done last year was negative. Her repeat MARILIN was negative and her complements normalized. She does have a positive TPO antibody with normal TSH. 2D echo with no signs of pulmonary hypertension At this time I do not see any signs suggestive of an autoimmune rheumatic disease. Discussed symptoms and signs that are suggestive of an autoimmune rheumatic disease. Advised patient to return, we may consider diagnosed her with UCTD. Follow-up as needed Plan I spent 17 minutes reviewing patient's chart, evaluating patient, counseling patient and documenting in the chart Coding Level of Care Code Est Pt Level 3 (09355) Diagnoses MARILIN positive R76.8
[2024-02-04 12:58] VITALS: BP 112/70; PULSE 76; O2SAT 98; BMI 23.1
== END 2024-02-04 13:52 | disposition home or self-care (01) ==
PROVIDERS: PCP Nurse Practitioner Family; Visit Provider Student in an Organized Health Care Education/Training Program
DX: R76.8 Other specified abnormal immunological findings in serum (principal)
CPT/HCPCS: 99213

== ENCOUNTER → 2024-02-04 12:39 | Outpatient (BNVA) | payer OTHER, SELFPAY | PROVIDERS: PCP Nurse Practitioner Family; Visit Provider Student in an Organized Health Care Education/Training Program | DX: R76.8 Other specified abnormal immunological findings in serum (principal); I73.00 Raynaud's syndrome without gangrene | CPT/HCPCS: 99212 ==

== ENCOUNTER 2024-02-09 08:48 | Outpatient (AMB) | payer OTHER, SELFPAY ==
--- NOTE | 2024-02-09 08:52 | MHC.OFFVIS ---
Vital Signs 02/09/24 09:01 Height 5 ft 2 in Weight 129 lb 3.054 oz BMI 23.6 BP 130/68 Blood Pressure Location Rt brachial Position Sitting Pulse 78 Pulse Source Pulse Oximeter Pulse Oximetry (%) 98 Oxygen Delivery Method Room Air Intake Visit Reasons: Abdominal bloating Intake Note: Simi presents in office today for a scheduled FUV. CC; Pt is here to reestablish care. Pt has not been seen since August 2022. Pt complains of ongoing abdominal bloating issues. Pt reports that the bloating has also been associated with nausea. Pt reports onset of nausea a few days ago. Pt reports having LUQ pain which typically is associated with these other sx as well. Pt reports having chronic issues but reports that this is slightly different as well. Pt notices these issues primarily after eating as well. Pt denies any OTC treatments at home, but does report making lifestyle changes and avoiding trigger foods. Pt reports having worsening hemorrhoids recently as well. Pt would like to discuss hydrocortisone treatment if possible. Light Coil Winder Required: No Allergies nut - unspecified [NUTS] Allergy (Severe, Verified 02/09/24 08:53) ANAPHYLAXIS seafood Allergy (Severe, Verified 02/09/24 08:56) Anaphylaxis NSAIDS (Non-Steroidal Anti-Inflamma Allergy (Intermediate, Verified 02/09/24 08:56) Rash latex Allergy (Verified 02/09/24 08:53) Itching HPI HPI Abdominal bloating: Details: LAST VISIT Blood in stool Patient was encouraged to drink plenty fluids. Her colonoscopy was normal. Patient was found to have internal hemorrhoids which most likely is the source of bleeding. Patient was encouraged to increase fluids intake. Patient will start taking probiotics again. I will see patient in 6 months, sooner on as needed basis. Patient is agreeable to this plan and verbalizes understanding of instructions. She was given the opportunity to ask questions and all questions answered. TODAY'S VISIT Patient is here today for follow-up. Patient reports that she has been feeling fairly well since last visit. Patient had few setbacks in her personal life. Patient was diagnosed with left breast carcinoma in March of last year. Patient underwent partial left breast mastectomy and underwent chemo and radiation. Patient reports that she is in remission now. Reports that she has been feeling fairly well. Occasionally patient will be feeling nauseous after she eats. Occasional loose stools after meals. It happens in the morning after she will have old meal with milk. Patient reports that she goes the restroom every day moving her bowels., however occasionally patient states that she will have few bowel movements throughout the day that are more loose. Patient feels like she eats enough fiber. She used to take probiotics as well as extra fiber supplement. Patient reports occasional abdominal bloating. Patient denies melena, hematochezia, unintentional weight loss or ribbon like stools. Patient denies dyspepsia, dysphagia or odynophagia. Occasional left or right upper quadrant discomfort. Pain is there at random time. 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 Raynaud's disease without gangrene Surgical History History of lumpectomy of left breast (~04/2023) Hx of colonoscopy Hx of section Hx of esophagogastroduodenoscopy History of hernia repair Family History Father Lupus Rheumatoid arthritis Hypertension Mother Osteoporosis Paternal Grandmother Primary generalized (osteo)arthritis Sister Meningioma All's disease Son Autism Brother Hypertension Mild hypercholesterolemia Sister Hypertension Mild hypercholesterolemia Social History Household Members: Spouse and Children Household Members Other:: son Housing: House Alcohol intake: current Alcohol intake frequency: holidays/special occasions only Patient Tobacco Use Status: Never used Tobacco e-Cigarette/Vaping Use: Never Used Second Hand Smoke Exposure: No service: No Current occupational status: employed and unemployed Cognitive needs: No Hearing needs: No Vision needs: No Review of Systems Const Denies weight gain and Denies weight loss ENT Reports no additional complaints, Denies dysphagia and Denies odynophagia Card Reports no additional complaints Resp Reports no additional complaints GI Reports abdominal pain (RUQ, LUQ), Denies belching, Denies melena, Reports bloating, Denies change in bowel habits, Denies dysphagia, Denies excessive flatus, Denies dyspepsia, Denies heartburn, Denies diarrhea, Reports loose stools (after eating), Reports nausea, Denies odynophagia and Denies vomiting Reports no additional complaints Musc Reports no additional complaints Neuro Reports no additional complaints Psych Reports no additional complaints Endo Reports no additional complaints Physical Exam Vital Signs: Last Vital Signs Pulse 78 02/09/24 09:01 BP 130/68 02/09/24 09:01 Pulse Ox 98 02/09/24 09:01 Oxygen Delivery Method Room Air 02/09/24 09:01 BMI result Body Mass Index 23.6 Const General: healthy appearing, no acute distress and well developed Nutritional Appearance: well nourished Orientation/consciousness: patient oriented x3 Resp Effort & Inspection: normal respiratory effort, able to speak in complete sentences, no tracheal deviation and symmetric chest movement Auscultation: clear to auscultation bilaterally Cardio Rate: regular rate GI Inspection: Yes normal to inspection and No distended Palpation (GI): Soft to palpation, not firm, nontender and No hepatosplenomegaly present Auscultation: normal bowel sounds General: Yes no CVA tenderness Back/Spine/Pelvis Back: no CVA tenderness Skin General skin exam: elasticity normal, turgor normal and dry skin Neuro General: patient oriented x3 Psych Appearance: grossly normal Mental Status: mental status grossly normal Assessment & Plan Assessment & Plan (1) Postprandial abdominal bloating: Code(s): R14.0 - Abdominal distension (gaseous) (2) Nausea: Code(s): R11.0 - Nausea (3) IBS (irritable bowel syndrome): Code(s): K58.9 - Irritable bowel syndrome, unspecified Qualifiers: Irritable bowel syndrome type: without diarrhea Qualified Code(s): K58.9 - Irritable bowel syndrome, unspecified Plan Discussed with patient high-fiber diet. Low FODMAP diet discussed with her as well. Patient will try to take extra fiber with probiotics. List of food recommended as well as list of food to avoid given patient. Script for Proctosol send. Patient will try to stay away from lactose. Patient will follow-up in our office on as needed basis. She is agreeable to this plan and verbalizes understanding of instructions. She was given the opportunity to ask questions and all questions answered. Thank you for allowing me to participate in her care Medications: New hydrocortisone 2.5% (Proctosol HC) [address] BID-QID PRN 30 grams 2RF hemorrhoids K64.9 - Unspecified hemorrhoids Coding Level of Care Code Est Pt Level 3 (93500) Diagnoses Postprandial abdominal bloating R14.0 Nausea R11.0 Irritable bowel syndrome without diarrhea K58.9 Irritable bowel syndrome type: without diarrhea Time Spent (min) 25 Comment 15 minutes spent with patient and additional 10 minutes spent reviewing her records
[2024-02-09 09:01] VITALS: BP 130/68; PULSE 78; O2SAT 98; BMI 23.6
== END 2024-02-09 09:25 | disposition home or self-care (01) ==
PROVIDERS: PCP Nurse Practitioner Family; Visit Provider Nurse Practitioner Family
DX: R14.0 Abdominal distension (gaseous) (principal); R11.0 Nausea; K58.9 Irritable bowel syndrome, unspecified
CPT/HCPCS: 99213

== ENCOUNTER → 2024-02-09 08:48 | Outpatient (BNVA) | payer OTHER, SELFPAY | PROVIDERS: PCP Nurse Practitioner Family; Visit Provider Nurse Practitioner Family | DX: R14.0 Abdominal distension (gaseous) (principal); R11.0 Nausea; K58.9 Irritable bowel syndrome, unspecified | CPT/HCPCS: 99212 ==

== ENCOUNTER 2024-03-28 09:27 | Outpatient (AMB) | payer OTHER, SELFPAY ==
--- NOTE | 2024-03-28 10:34 | MHC.OFFWIV ---
Intake Vital Signs 03/28/24 10:37 Height 5 ft Weight 132 lb BMI 25.8 BP 112/68 Blood Pressure Location Rt brachial Position Sitting Pulse 71 Pulse Source Pulse Oximeter Temp 98.1 F Temp Source Oral Pulse Oximetry (%) 98 Oxygen Delivery Method Room Air Intake Visit Reasons: EP-sore throat, nose congestion, cough Intake Note: Patient here for cough, congestion, mucus, headaches and fevers. Denies any vomiting, diarrhea or nausea. Patient Tobacco Use Status: Never used Tobacco Allergies nut - unspecified [NUTS] Allergy (Severe, Verified 03/28/24 10:40) ANAPHYLAXIS seafood Allergy (Severe, Verified 03/28/24 10:40) Anaphylaxis NSAIDS (Non-Steroidal Anti-Inflamma Allergy (Intermediate, Verified 03/28/24 10:40) Rash latex Allergy (Verified 03/28/24 10:40) Itching Do you need a note to return to daycare/school/sports/work: No HPI EP-sore throat, nose congestion, cough HPI Details This note is constructed using voice recognition software. While every effort has been made to ensure accuracy, shot polisher errors may have been included. The patient is a 43 year old female who presents to the clinic today with cough, congestion, and sinus pressure for the past 5-7 days. She reports initially she had a low-grade fever, she denies shortness of breath, body aches. She has not taken anything medication fitzpatrick to support the symptoms, however has done hydration, humidification. She reports that her family is not sick, she has had no known sick contacts. 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 Raynaud's disease without gangrene Surgical History History of lumpectomy of left breast (~04/2023) Hx of colonoscopy Hx of section Hx of esophagogastroduodenoscopy History of hernia repair Family History Father Lupus Rheumatoid arthritis Hypertension Mother Osteoporosis Paternal Grandmother Primary generalized (osteo)arthritis Sister Meningioma All's disease Son Autism Brother Hypertension Mild hypercholesterolemia Sister Hypertension Mild hypercholesterolemia Social History Household Members: Spouse and Children Household Members Other:: son Housing: House Alcohol intake: current Alcohol intake frequency: holidays/special occasions only Patient Tobacco Use Status: Never used Tobacco e-Cigarette/Vaping Use: Never Used Second Hand Smoke Exposure: No service: No Current occupational status: employed and unemployed Cognitive needs: No Hearing needs: No Vision needs: No Review of Systems Const All systems reviewed & are unremarkable except as noted in HPI and below Physical Exam Vital Signs: Last Vital Signs Temp 98.1 F 03/28/24 10:37 Pulse 71 03/28/24 10:37 BP 112/68 03/28/24 10:37 Pulse Ox 98 03/28/24 10:37 Oxygen Delivery Method Room Air 03/28/24 10:37 BMI result Body Mass Index 25.8 Const General: cooperative, healthy appearing, comfortable and no acute distress Orientation/consciousness: patient oriented x3 Limitations: no limitations HEENT Head: Yes normal to inspection Ears: hearing grossly normal bilaterally, external ears normal and TM's normal bilaterally General nose exam: Normal external nose present, Normal nares present and No nasal discharge present Face and sinus: Yes normal facial exam and Yes sinuses nontender Mouth: Normal oral and palatal mucosa present and moist mucous membranes Throat: Yes tonsils normal, Yes uvula midline and Yes posterior oropharynx abnormal (Erythema) Eyes General: appearance normal, both eyes and all related structures Neck Neck: Yes normal visual inspection Resp Effort & Inspection: normal respiratory effort, able to speak in complete sentences, Actively coughing, no respiratory distress, not tachypneic, no tripod positioning and no use of accessory muscles Auscultation: clear to auscultation bilaterally Cardio Jugular venous distension: no JVD Rate: regular rate Rhythm: regular rhythm Heart sounds: S1 normal heart sound present, S2 normal heart sound present, no click, no gallops, no murmurs and no rubs Skin General skin exam: no rashes or lesions noted, elasticity normal and turgor normal Neuro General: patient oriented x3 Extrem General: Yes normal to inspection and Yes no clubbing, cyanosis or edema Assessment & Plan Assessment & Plan (1) URI (upper respiratory infection): Code(s): J06.9 - Acute upper respiratory infection, unspecified Qualifiers: URI type: unspecified URI Qualified Code(s): J06.9 - Acute upper respiratory infection, unspecified Plan: Viral swab obtained to rule out Covid, flu, rsv based on symptoms. Advised mask wearing while symptomatic and quarantine per current CDC guidelines. Reviewed at home support methods including hydration, humidification, vix vapor rub, sinus rinse. Discussed treatment with antiviral therapy for covid with paxlovid and tamiflu for flu including appropriate use and side effects, and need to start medication within 5 day of symptom onset, preferably within 48 hours of symptom onset. Patient is outside of timeline for treatment with antiviral therapy Advised follow up with worsening symptoms such as dyspnea at rest, which would require emergent evaluation. Plan See above for full details and plan. Orders: Orders SARS-CoV2/FLU/RSV Today J06.9 - Acute upper respiratory infection, unspecified Coding Level of Care Code Est Pt Level 3 (31337) Diagnoses Upper respiratory tract infection, unspecified type J06.9 URI type: unspecified URI
[2024-03-28 10:37] VITALS: BP 112/68; PULSE 71; TEMP 36.7; O2SAT 98; BMI 25.8
== END 2024-03-28 11:11 | disposition home or self-care (01) ==
PROVIDERS: PCP Nurse Practitioner Family; Visit Provider Registered Nurse
DX: J06.9 Acute upper respiratory infection, unspecified (principal)

== ENCOUNTER 2024-03-28 09:27 | Outpatient (REF) | payer OTHER, SELFPAY ==
[2024-03-28 19:46] LABS: Influenza A PCR NEGATIVE (Negative); Influenza B PCR NEGATIVE (Negative); Resp Syncy Virus RNA Qual PCR NEGATIVE (Negative); SARS COV2 PCR INHOUSE NEGATIVE (Negative)
== END 2024-03-28 09:28 | disposition home or self-care (01) ==
LOC: HO.LNP 09:27
PROVIDERS: PCP Nurse Practitioner Family; Visit Provider Registered Nurse
DX: J06.9 Acute upper respiratory infection, unspecified (principal)
CPT/HCPCS: 0241U; 99212

== ENCOUNTER 2024-07-28 08:10 | Outpatient (AMB) | payer OTHER, SELFPAY ==
--- NOTE | 2024-07-28 08:22 | A.OFFPC_ITS ---
Vital Signs 07/28/24 08:23 Height 5 ft Weight 127 lb BMI 24.8 BP 108/70 Blood Pressure Location Lt brachial Position Sitting Pulse 69 Pulse Source Pulse Oximeter Pulse Oximetry (%) 99 Oxygen Delivery Method Room Air Intake Visit Reasons: PE Intake Note: pt is here for PE Gyro Compass Tester Required: No Accompanied by: Self / Same As Patient Allergies nut - unspecified [NUTS] Allergy (Severe, Verified 07/28/24 09:13) ANAPHYLAXIS seafood Allergy (Severe, Verified 07/28/24 09:13) Anaphylaxis NSAIDS (Non-Steroidal Anti-Inflamma Allergy (Intermediate, Verified 07/28/24 09:13) Rash latex Allergy (Verified 07/28/24 09:13) Itching Medication List - Last Reconciled 07/28/24 by COLIN Albarado acetaminophen (Tylenol) 325 mg PO QID PRN ascorbate calcium (vitamin C) 500 mg PO DAILY cholecalciferol (vitamin D3) 10 mcg PO DAILY epinephrine (EpiPen 2-Gabe) 0.3 mg (0.3 mL) IM Q4H PRN 30 days magnesium oxide 500 mg PO DAILY riboflavin (vitamin B2) 400 mg PO DAILY Tobacco use date assessed: 07/28/24 Dental Screening Dental Screen Date: 07/28/24 Did you have a dental visit in the last 12 months?: Yes Did you have a dental problem in the last 6 months where you did not have access to dental care?: No Was dental information given to patient?: Patient has dentist HPI PE HPI Details History of Present Illness The patient is a 43-year-old female presenting for a routine physical examination. She has a history of breast cancer, which was treated with radiation therapy. Post-treatment, she reports feeling excellent and has increased her physical activity levels. Currently, she experiences difficulties in swallowing pills and a bit of dry mouth. 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 Health Maintenance Social History - Increased physical activity following breast cancer treatment Review of Systems - Oral: Reports xerostomia - Gastrointestinal: Reports dysphagia Physical Exam General: Cooperative, healthy appearing, comfortable, no acute distress and well developed Orientation: Patient oriented x3 Limitations: No limitations Head: Normal to inspection Ears: Hearing grossly normal bilaterally Nose: Normal external nose present Face and sinus: Normal facial exam Eyes: Appearance normal, both eyes and all related structures Neck: Normal visual inspection and Yes full ROM Respiratory: Normal respiratory effort and able to speak in complete sentences. Clear to auscultation bilaterally Cardiovascular: Regular rate and rhythm. Normal S1 and S2 GI: Normal to inspection. Soft to palpation and nontender Skin: No rashes or lesions noted Neuro: Patient oriented x3 Extremities: Normal to inspection, no edema noted Results Plan I have scheduled a thyroid ultrasound to reevaluate her condition due to history of All's thyroiditis. To investigate the cause of her swallowing difficulty, a barium swallow will be performed focusing on the upper posterior pharynx. Based on results, speech therapy may be considered. I discussed the importance of regular mammograms and Pap smears for her continued health. Ongoing encouragement of her physical activity is essential given her recovery from breast cancer. Discussion Notes During our consultation, I explained the significance of monitoring her thyroid condition with a repeat ultrasound due to her history of All's thyroiditis. We discussed a barium swallow study to identify potential causes for her difficulty swallowing pills, particularly if involving the upper posterior pharynx region. I informed her about potential involvement of speech therapy if required. The benefits and necessity of regular mammograms and Pap smears were emphasized as integral to her health maintenance. Acknowledgment was made of her adaptive recovery through physical activity following breast cancer treatment. Patient Instructions - Undergo repeat thyroid ultrasound as s cheduled. - Complete barium swallow test as direct ed. - Maintain regular mammogram and Pap sme ar schedule. - Continue increasing physical activity as tolerated. 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 Raynaud's disease without gangrene Surgical History History of lumpectomy of left breast (~04/2023) Hx of colonoscopy Hx of section Hx of esophagogastroduodenoscopy History of hernia repair Family History Father Lupus Rheumatoid arthritis Hypertension Mother Osteoporosis Paternal Grandmother Primary generalized (osteo)arthritis Sister Meningioma All's disease Son Autism Brother Hypertension Mild hypercholesterolemia Sister Hypertension Mild hypercholesterolemia Social History Household Members: Spouse and Children Household Members Other:: son Housing: House Alcohol intake: current Alcohol intake frequency: holidays/special occasions only Patient Tobacco Use Status: Never used Tobacco e-Cigarette/Vaping Use: Never Used Second Hand Smoke Exposure: No service: No Current occupational status: employed and unemployed Cognitive needs: No Hearing needs: No Vision needs: No Questionnaire PHQ-9 Over the last 2 weeks, how often have you been bothered by any of the following problems? 1. Little interest or pleasure in doing things: not at all 2. Feeling down, depressed, or hopeless: not at all 3. Trouble falling or staying asleep, or sleeping too much: several days 4. Feeling tired or having little energy: not at all 5. Poor appetite or overeating: not at all 6. Feeling bad about yourself - or that you are a failure or have let yourself or your family down: not at all 7. Trouble concentrating on things, such as reading the newspaper or watching television: not at all 8. Moving or speaking so slowly that other people could have noticed. Or the opposite - being so fidgety or restless that you have been moving around a lot more than usual: not at all 9. Thoughts that you would be better off or of hurting yourself in some way: not at all Total score: 1 Depression Screening Interpretation: Negative Depression Screening Done: Yes 18563 - PHQ-9 Billing: Yes Source: Developed by Drs. David Georges, Deepika Rubi, Yonathan Bryant and colleagues, with an educational nancy from [employer]. Thrive Questionnaire Date Thrive assessed: 07/28/24 I am a: Patient What is your living situation today?: I have a steady place to live Within the past 12 months, did the food you bought not last and you didn't have the money to get more?: Never true Within the past 12 months, did you worry whether your food would run out before you got money to buy more?: Never true Do you have trouble paying for medicines?: No Do you have trouble getting transportation to medical appointments?: No Do you have trouble paying your heating and electricity bill?: No Do you have trouble taking care of your child, family member or friend?: No Do you have trouble with day-to-day activities such as bathing, preparing meals, shopping, managing finances, etc.?: No Are you currently unemployed and looking for a job?: No Are you interested in more education?: No Please select the resources that you would like help with: None Currently or been in a relationship where the following occur: No concerns reported THRIVE Score: 0 AUDIT C Alcohol Use Questionnaire (AUDIT-C) 1. How often do you have a drink containing alcohol?: Monthly or less 2. How many drinks containing alcohol do you have on a typical day when you are drinking?: 1 or 2 3. How often do you have six or more drinks on one occasion?: Never Total Score: 1 Score Reviewed/Action Taken: Yes RAFIA-7 AMB Questionnaire RAFIA-7 Date RAFIA - 7 assessed: 07/28/24 Feeling nervous, anxious, or on edge: 0 = Not at all Not being able to stop or control worryin = Not at all Worrying too much about different things: 0 = Not at all Trouble relaxin = Not at all Being so restless that it is hard to sit still: 0 = Not at all Becoming easily annoyed or irritable: 0 = Not at all Feeling afraid as if something awful might happen: 0 = Not at all Total RAFIA-7 score (0-4 normal; 5-9 mild; 10-14 moderate; 15-21 severe): 0 Source: Developed by Drs. David Georges, Deepika Rubi, Yonathan Bryant and colleagues, with an educational nancy from [employer]. RAFIA-7 Assessment Billing RAFIA-7 Assessment Tool: RAFIA-7 Assessment 25788 Physical exam (Primary Care) Vital Signs: Last Vital Signs Pulse 69 07/28/24 08:23 BP 108/70 07/28/24 08:23 Pulse Ox 99 07/28/24 08:23 Oxygen Delivery Method Room Air 07/28/24 08:23 BMI result Body Mass Index 24.8 Tobacco/Smoking Status: Tobacco use Status Tobacco use date assessed 07/28/24 07/28/24 08:24 Patient Tobacco Use Status Never used Tobacco 07/28/24 08:24 e-Cigarette/Vaping Use Never Used 07/28/24 08:24 PHQ-9: PHQ-9 Score PHQ-9: Total score 1 07/28/24 08:24 Depression Screening Interpretation: Negative Thrive Assessment: Date of Thrive Assessment Date Thrive assessed 07/28/24 07/28/24 08:24 Currently or been in a relationship where the following occur: No concerns reported Coding Level of Care Code Est Pt Prev Care 40-64y(84800) Diagnoses Physical exam Z00. All's disease E06.3 Dysphagia R13.10 Additional Codes RAFIA-7 Assessment Billing - RAFIA-7 Assessment Tool: RAFIA-7 Assessment 28551 ([id number]) PHQ-9 - 35591 - PHQ-9 Billing: Yes ([id number]) Assessment & Plan Assessment & Plan (1) Physical exam: Code(s): Z00.00 - Encounter for general adult medical examination without abnormal findings Category: Medical (2) All's disease: Code(s): E06.3 - Autoimmune thyroiditis Category: Medical (3) Dysphagia: Code(s): R13.10 - Dysphagia, unspecified Category: Medical Plan . Orders: Orders Complete Blood Count Auto Diff Today Z00.00 - Encounter for general adult medical examination without abnormal findings US thyroid Today E06.3 - Autoimmune thyroiditis, Z00.00 - Encounter for general adult medical examination without abnormal findings [place] Modified Barium Swallow Today R13.10 - Dysphagia, unspecified Comprehensive [place]. Panel Fast Today Z00.00 - Encounter for general adult medical examination without abnormal findings TSH reflex Free T4 Today Z00.00 - Encounter for general adult medical examination without abnormal findings UA CC w/rflx Micro + Cult Today Z00.00 - Encounter for general adult medical examination without abnormal findings Lipid Panel Today Z00.00 - Encounter for general adult medical examination without abnormal findings
[2024-07-28 08:23] VITALS: BP 108/70; PULSE 69; O2SAT 99; BMI 24.8
== END 2024-07-28 09:14 | disposition home or self-care (01) ==
LOC: HO.HMCC 08:11
PROVIDERS: PCP Nurse Practitioner Family; Visit Provider Nurse Practitioner Family
DX: Z00.00 Encounter for general adult medical examination without abnormal findings (principal); E06.3 Autoimmune thyroiditis; R13.10 Dysphagia, unspecified

== ENCOUNTER → 2024-07-28 08:10 | Outpatient (BNVA) | payer OTHER, SELFPAY | PROVIDERS: PCP Nurse Practitioner Family; Visit Provider Nurse Practitioner Family | DX: Z00.00 Encounter for general adult medical examination without abnormal findings (principal); E06.3 Autoimmune thyroiditis; R13.10 Dysphagia, unspecified | CPT/HCPCS: 96127; 99396 ==

== ENCOUNTER 2024-07-29 06:11 | Outpatient (REF) | payer OTHER, SELFPAY ==
--- OUTSIDE RECORDS SUMMARY | 2024-07-29 06:13 | XMS_ITS | Clinical Summary ---
Author Organization [facility] Address [address] [place] [address] Phone Care Team Providers Care Gis Software Developer Name Role Phone Cy Grider NP Primary Care Provider Allergies Active Allergy Reactions Criticality Noted Date Comments Fish Containing Products 06/04/2020 Seafood Latex 04/29/2023 Other Reaction(s): Rash/Dermatitis Nsaids (Non-Steroidal Anti-Inflammatory Drug) 08/20/2014 Avoiding because triggers hives Nut - Unspecified 05/20/2016 La nuts, almonds, & cashews (pt reported) Shellfish Containing Products Other 09/06/2014 Problem with histamines Medications EPINEPHrine (EpiPen 2-Gabe) 0.3 mg/0.3 mL injection Inject 1 Device as directed as needed (anaphylaxis) . Use as directed 07/19/2020 Active Active Problems Problem Noted Date Diagnosed Date Trace mitral valve regurgitation 04/11/2021 Overview (03/10/2024): Trace-mild mitral regurg seen on echo 04/08/21 Adverse food reaction 10/27/2017 Perennial allergic rhinitis 10/27/2017 Angioedema 05/05/2017 Recurrent urticaria 05/05/2017 Fibromyalgia 09/13/2014 GERD (gastroesophageal reflux disease) 5 Fatigue 09/06/2014 Vitamin D deficiency 09/06/2014 Allergic rhinitis 03/29/2010 Encounters Date Type Department Care Team Description 05/04/2024 1:46 PM EST - 05/04/2024 11:59 PM EST Hospital [facility] [address] [address] History of invasive breast cancer Discharge Disposition: Home or Self Care from Last 3 Months Immunizations Name Administration Dates Next Due Influenza trivalent, 0.5mL, preservative free (Fluarix; FluLaval; Fluzone) ages 6mo and older (Afluria) 3 years and older 02/07/2014 Tdap Tetanus diptheria acell ular pertussis (Boostrix; Adacel) 7yo and older 06/04/2010 Surgical History Surgery Date Site/Laterality Comments SECTION 02/17/2006 PROCEDURE: HISTORICAL ESOPHAGOGASTRODUODENOSCOPY 06/28/2015 PROCEDURE: OH ESOPHAGOGASTRODUODENOSCOPY TRANSORAL DIAGNOSTIC; COMMENT: Hiatal hernia, otherwise normal. gastric biopsy taken OTHER SURGICAL HISTORY 05/13/2017 PROCEDURE: OH LAPT RPR PARAESOPH HIATAL HERNIA W/MESH BREAST BIOPSY Right PROCEDURE: OH BX BREAST W/DEVICE 1ST LESION ULTRASOUND GUID; COMMENT: neg BREAST LUMPECTOMY Left Medical History Medical History Date Comments Allergic rhinitis 03/29/2010 DX:Allergic rh initis Fibromyalgia 09/13/2014 DX:Fibromyalgia Hypothyroidism 09/13/2014 DX:Hypothyroidis m GERD (gastroesophageal reflux disease) 09/13/2014 DX:GERD (gastroesophageal reflux disease); COMMENT: Normal ba swallow 09/04/15 Family history of consanguinity DX:Family history of consanguinity; COMMENT: parents are second cousins Family history of ovarian cancer 2016 DX:Family history of ovarian cancer; COMMENT: neg genetic testing BRCA negative 2016 DX:BRCA negative Recurrent urticaria 05/05/2017 DX:Recurrent urticaria Angioedema 05/05/2017 DX:Angioedema Breast cancer Family History Medical History Relation Name Comments Uterine cancer Aunt 1 paternal Stroke Aunt 2 maternal Hyperlipidemia Brother x 1 Cataracts Father Other: Lupus Father alcohol, arthri tis, HTN, depression Alcohol abuse Maternal Grandfather liver cirrhosis Diabetes Maternal Grandmother hyperte nsion, [place] Other: consanguinity Mother Coronary artery disease Paternal Grandfather Arthritis Paternal Grandmother Other: faith's Sister x 3 HLD No Known Problems Son Stomach cancer Uncle pat great un EtOH abuse Relation Name Status Comments Aunt 1 paternal Aunt 2 maternal Brother x 1 Alive 1,allergies Father Alive lupus Maternal Grandfather Maternal Grandmother Mother Alive healthy Paternal Grandfather Alive Paternal Grandmother Alive Sister x 3 Alive 3,healthy Son Alive Uncle pat great un Social History Tobacco Use Types Packs/Day Years Used Date Smoking Tobacco: Never Smokeless Tobacco: Never Alcohol Use Standard Drinks/Week Comments Yes 0 (1 standard drink = 0.6 oz pur e alcohol) Comments No Sex and Gender Information Value Date Recorded Sex Assigned at Female 04/04/2024 3:34 PM EST Legal Sex Female 10:22 AM EST Gender Identity Female 04/04/2024 3:34 PM EST Sexual Orientation Straight 04/04/2024 3: 34 PM EST Obstetrics History Para Term AB IAB SAB Ectopic Multiple Livin g Live Births 1 Last Filed Vital Signs Vital Sign Reading Time Taken Comments Blood Pressure 118/69 04/13/2024 2:41 PM EST Pulse 71 04/13/2024 2:41 PM EST Temperature 36.7 ??C (98 ??F) 04/13/2024 2:41 PM EST Respiratory Rate - - Oxygen Saturation - - Inhaled Oxygen Concentration - - Weight 56.7 kg (125 lb) 05/04/2024 2:10 PM EST Height 157.5 cm (5' 2 ) 05/04/2024 2:10 PM EST Body Mass Index 22.86 05/04/2024 2:10 PM EST Plan of Treatment Upcoming Encounters Date Type Department Care Team (Late st Contact Info) Description 10/12/2024 2:00 PM EDT Office Visit Breast [facility] [address] [place] [id number] Missy Celestin MD [address] [place] [address] Health Maintenance Due Date Last Done Comments Hepatitis B Vaccines (1 of 3 - 19+ 3-dose series) 1997 Pneumococcal Vaccine: Pediatrics (0 to 5 Years) and At-Risk Patients (6 to 64 Years) (1 of 2 - PCV) 1997 Colorectal Cancer Screening: Colonoscopy 04/05/2022 Depression Screening 04/05/2022 HIV Screening 04/05/2022 Hepatitis C Screening 04/05/2022 Social Influencers of Health Screening 04/05/2022 COVID-19 Vaccine ( season) 2023 04/24/2022, 04/11/2021, 09/25/2020, Additional history exists Influenza Vaccine (#1) 2023 02/07/2014 Cholesterol Screening (Lipid Panel) 06/09/2025 06/09/2020 Breast Cancer Screening 05/04/2026 05/04/19, 04/07/2023, 04/07/2023, Additional history exists Cervical Cancer Screening: HPV 05/28/2028 05/28/2023 DTaP,Tdap,and Td Vaccines (3 - Td or Tdap) 10/24/2032 10/24/2022, 06/04/2010 HIB Vaccines Aged Out No longer eligi ble based on patient's age to complete this topic HPV Vaccines Aged Out No longer eligi ble based on patient's age to complete this topic Hepatitis A Vaccines Aged Out No long er eligible based on patient's age to complete this topic IPV Vaccines Aged Out No longer eligi ble based on patient's age to complete this topic MMR Vaccines Aged Out No longer eligi ble based on patient's age to complete this topic Meningococcal ACWY Vaccine Aged Out N o longer eligible based on patient's age to complete this topic Meningococcal B Vacine Aged Out No lo nger eligible based on patient's age to complete this topic RSV Immunization Patients Under 20 months Aged Out No longer eligible based on patient's age to complete this topic Varicella Vaccines Aged Out No longer eligible based on patient's age to complete this topic Procedures Procedure Name Priority Date/Time Associated Diagnosis Comments MG MAMMO DIGITAL DIAGNOSTIC W GERONIMO BILAT Routine 05/04/2024 3:05 PM EST History of invasive breast cancer HM HPV Routine 05/28/2023 LIPID PANEL Routine 06/09/2020 from Last 3 Months or Most Recently Relevant to Health Maintenance Results * MG Mammo Digital Diagnostic w Geronimo bilat (05/04/2024 3:05 PM EST) Anatomical Region Laterality Modality Breast Bilateral Mammography 05/04/2024 2:50 PM EST Impressions 05/04/2024 3:00 PM EST The patient's symptoms should be managed on the basis of the clinical breast exam. No suspicious findings with interval left lumpectomy. ?? Calcifications elsewhere in the left breast should be monitored with diagnostic mammography in 12 months A negative mammogram in the presence of a clinically suspicious palpable abnormality does not preclude the possibility of malignancy or alter the indications for biopsy. ASSESSMENT: ?? BI-RADS 3: PROBABLY BENIGN RECOMMENDATION(S): 1: Follow-up diagnostic mammogram BILATERAL in 1 year. -------- FINAL REPORT -------- Dictated By: Dakota Juárez Dictated Date: 05/04/2024 14:50 ET Assigned Physician: Dakota Juárez Reviewed and Electronically Signed By: Dakota Juárez Signed Date: 05/04/2024 15:00 ET Workstation ID: [id number] Transcribed By: Self Edit Transcribed Date: 05/04/2024 14:50 ET Narrative 05/04/2024 3:00 PM EST EXAM: ??DIAGNOSTIC MAMMOGRAPHY, BILATERAL HISTORY: ??Personal history of DCIS left breast. ??Left lumpectomy. ??Breast pain. Calcifications elsewhere in the left breast. COMPARISON: ??05/07/2023, 03/31/2023, 09/12/2022, 03/12/2022, 03/05/2021 TECHNIQUE: Synthesized CC and MLO projections of each breast. ??Tomosynthesis of each breast in the CC and MLO projections. ADDITIONAL IMAGING: Spot magnified views of the left breast in multiple projections. ??Craniocaudal view of the left breast exaggerated medially using Tomosynthesis. Computer-aided detection was employed with the iCAD ??profound AI 3-D. TISSUE DENSITY: The breasts are extremely dense, which lowers the sensitivity of mammography. (BI-RADS category D) FINDINGS: RIGHT BREAST: No suspicious mass. No suspicious calcification. No distortion. ?? No additional suspicious right breast findings LEFT BREAST: There has been interval lumpectomy and there are surgical clips present. ?? There are some additional calcifications in the outer left breast. ??No suspicious interval change. ??These should be monitored with diagnostic mammography in 12 months. Procedure Note Dakota Juárez MD - 05/04/2024 EXAM: DIAGNOSTIC MAMMOGRAPHY, BILATERAL HISTORY: Personal history of DCIS left breast. Left lumpectomy. Breastpain. Calcifications elsewhere in the left breast. COMPARISON: 05/07/2023, 03/31/2023, 09/12/2022, 03/12/2022, 03/05/2021 TECHNIQUE: Synthesized CC and MLO projections of each breast.Tomosynthesis of each breast in the CC and MLO projections. ADDITIONAL IMAGING: Spot magnified views of the left breast in multipleprojections. Craniocaudal view of the left breast exaggerated mediallyusing Tomosynthesis. Computer-aided detection was employed with the [employer] AI 3-D. TISSUE DENSITY: The breasts are extremely dense, which lowers thesensitivity of mammography. (BI-RADS category D) FINDINGS: RIGHT BREAST: No suspicious mass. No suspicious calcification. No distortion. Noadditional suspicious right breast findings LEFT BREAST: There has been interval lumpectomy and there are surgical clips present. There are some additional calcifications in the outer left breast. Nosuspicious interval change. These should be monitored with diagnosticmammography in 12 months. IMPRESSION: The patient's symptoms should be managed on the basis of the clinicalbreast exam. No suspicious findings with interval left lumpectomy. Calcifications elsewhere in the left breast should be monitored withdiagnostic mammography in 12 months A negative mammogram in the presence of a clinically suspicious palpableabnormality does not preclude the possibility of malignancy or alter theindications for biopsy. ASSESSMENT: BI-RADS 3: PROBABLY BENIGN RECOMMENDATION(S): 1: Follow-up diagnostic mammogram BILATERAL in 1 year. -------- FINAL REPORT -------- Dictated By: Dakota Juárez Dictated Date: 05/04/2024 14:50 ET Assigned Physician: Dakota Juárez Reviewed and Electronically Signed By: Dakota Juárez Signed Date: 05/04/2024 15:00 ET Workstation ID: [id number] Transcribed By: Self Edit Transcribed Date: 05/04/2024 14:50 ET us Missy Celestin MD IMG BI PROCEDURES Final Result * Cervical Cancer Screening: HPV (05/28/2023) Cervical Cancer Screening: HPV Negative, Abstracted Historical Provider HEALTH MAINTENANCE Final Result * (ABNORMAL) Lipid panel (06/09/2020) LDL/HDL Ratio 3 0 - 4 Triglycerides 66 0 - 150 mg/dL Cholesterol 185 0 - 200 mg/dL HDL 57 >=40 mg/dL LDL Cholesterol 115(A) 0 - 100 mg/dL Blood Venous blood specimen / Unknown Historical Provider LAB BLOOD ORDERABLES Shadia l Result from Last 3 Months or Most Recently Relevant to Health Maintenance Insurance [employer] Advance Directives Documents on File Type Date Recorded 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 Health Care Decision (hx) 05/13/2017 AD MÉNDEZ DIRECTIVE Health Care Decision (hx) 05/13/2017 AD MÉNDEZ DIRECTIVE Health Care Decision (hx) 05/13/2017 AD MÉNDEZ DIRECTIVE Health Care Decision (hx) 05/13/2017 AD MÉNDEZ DIRECTIVE Health Care Decision (hx) 05/13/2017 AD MÉNDEZ DIRECTIVE Health Care Decision (hx) 05/13/2017 AD MÉNDEZ DIRECTIVE Health Care Decision (hx) 05/13/2017 AD MÉNDEZ DIRECTIVE Health Care Decision (hx) 05/13/2017 AD MÉNDEZ DIRECTIVE Health Care Decision (hx) 05/13/2017 AD MÉNDEZ DIRECTIVE Health Care Decision (hx) 05/13/2017 AD MÉNDEZ DIRECTIVE Health Care Decision (hx) 05/13/2017 AD MÉNDEZ DIRECTIVE Health Care Decision (hx) 05/13/2017 AD MÉNDEZ DIRECTIVE Health Care Decision (hx) 05/13/2017 AD MÉNDEZ DIRECTIVE Care Teams Gis Software Developer Relationship Specialty Start Date End Date [facility] Grider NP [address] [facility] [place] P[facility] - General 04/13/23
[2024-07-29 10:06] LABS: MANUAL DIFF FLAG NO
[2024-07-29 10:36] LABS: Appearance Urine Clear; Color Urine Yellow; Glucose Urine UA Negative (Negative); Leukocyte Esterase Urine Negative (Negative); Nitrite Urine Negative (Negative); Specific Gravity - Urine <= 1.005 (1.005-1.025); Urine Blood Negative (Negative); Urine Ketones Negative (Negative); Urine Protein Negative (Neg-Trace)
[2024-07-29 10:37] LABS: Basophils Percent Auto 1.2 % (0-2); Eosinophils Absolute Auto 0.1 X10*3/uL (0.0-0.4); Eosinophils Percent Auto 2.2 % (0-4); Hematocrit 34.7 % (37.0-47.0); Hemoglobin 11.4 g/dl (12.0-16.0); Imm Gran Abs Auto 0.01 X10*3/uL (0.00-0.03); Imm Gran Pct Auto 0.3 % (0.0-0.4); Lymphocytes Absolute Auto 0.9 X10*3/uL (1.2-4.9); Lymphocytes Percent Auto 28.3 % (20-40); Mean Corpuscular HGB Conc 32.9 g/dl (31.0-35.0); Mean Corpuscular Hemoglobin 28.6 pg (27.0-33.0); Mean Corpuscular Volume 87.2 fL (80.0-98.0); Mean Platelet Volume 11.4 fL (9.4-12.3); Monocytes Absolute Auto 0.4 X10*3/uL (0.1-1.2); Monocytes Percent Auto 10.8 % (2-11); Neutrophils Absolute Auto 1.9 x10*3/uL (2.0-8.3); Neutrophils Percent Auto 57.2 % (45-73); Platelet Count 229 X10*3/uL (160-400); Red Blood Count 3.98 X10*6/uL (4.20-5.50); Red Cell Distribution Width 15.5 % (11.0-16.0); White Blood Count 3.3 X10*3/uL (4.8-10.8)
[2024-07-29 11:19] LABS: Alanine Aminotransferase 10 U/L (0-31); Alkaline Phosphatase 60 U/L (39-117); Anion Gap 9 (12-20); Aspartate Amino Transferase 21 U/L (5-31); Bilirubin Total 0.2 mg/dL (0.0-1.0); Blood Urea Nitrogen 11 mg/dL (9-16); Calcium 8.7 mg/dL (8.4-10.2); Carbon Dioxide 23 mmol/L (22-29); Chloride 109 mmol/L (96-108); Cholesterol 183 mg/dL (<200); Estimated Glomerular Filt Rate > 60; Glucose Fasting 82 mg/dL (60-99); HDL Cholesterol 51 mg/dL (>40); LDL Cholesterol Calculated 115 mg/dL (<100); Potassium 4.1 mmol/L (3.3-5.1); Sodium 137 mmol/L (135-145); TSH reflex Free T4 2.35 uIU/mL (0.32-4.0); Total Protein 7.3 g/dL (6.5-8.0); Triglycerides 85 mg/dL (<150)
== END 2024-07-29 06:12 | disposition home or self-care (01) ==
LOC: HO.HMGCLDS 06:11
PROVIDERS: PCP Nurse Practitioner Family; Visit Provider Nurse Practitioner Family
DX: Z00.00 Encounter for general adult medical examination without abnormal findings (principal); Z13.220 Encounter for screening for lipoid disorders; Z13.29 Encounter for screening for other suspected endocrine disorder; Z13.9 Encounter for screening, unspecified
CPT/HCPCS: 36415; 80053; 80061; 81003; 84443; 85025

== ENCOUNTER 2024-08-18 08:10 | Outpatient (REF) | payer OTHER, SELFPAY ==
--- NOTE | ~2024-08-18 | US_ITS ---
EXAMINATION: US THYROID HISTORY: Z00.00 - Encounter for general adult medical examination without abnormal... TECHNIQUE: Real-time grayscale ultrasound imaging was performed and images were reviewed. COMPARISON: There are no prior studies for comparison. FINDINGS: SIZE: The right thyroid lobe measures 5.2 x 1.5 x 1.3 cm. The left thyroid lobe measures 5.1 x 1.4 x 1.6 cm. The isthmus measures 3 mm. FLOW: Flow to the gland is increased. ECHOGENICITY: The echotexture of the gland is mildly heterogeneous. NODULES: Subcentimeter nodules are noted in both thyroid lobes as described below: Nodule #: 1 Location: Right lower pole measuring 5 x 4 x 4 mm. Shape: Round (0 points) Margins: Smooth (0 points) Echotexture: Hypoechoic (2 points) Composition: Solid (2 points) Calcifications: None (0 points) Total points: 4 TIRADS: TR4: Moderately suspicious. Nodule #: 2 Location: Midportion of the left thyroid lobe measuring 7 x 3 x 5 mm. Shape: Wider than tall (0 points) Margins: Smooth (0 points) Echotexture: Hypoechoic (2 points) Composition: Solid (2 points) Calcifications: None (0 points) Total points: 4 TIRADS: TR4: Moderately suspicious. US/US thyroid IMPRESSION: Subcentimeter bilateral thyroid nodules as described. Per ACR TI-RADS guidelines below, no biopsy or follow-up is recommended at this time. ACR TI-RADS Guidelines TR1 (0 points): Benign, No follow-up or biopsy required TR2 (2 points): Not Suspicious, No biopsy or follow up indicated TR3 (3 points): Mildly Suspicious, FNA if >= 2.5 cm, Follow if >= 1.5 cm TR4 (4-6 points): Moderately Suspicious, FNA if >= 1.5 cm, Follow if >= 1.0 cm TR5 (>=7 points): Highly Suspicious, FNA if >= 1.0 cm, Follow if >= 0.5 cm Electronically signed by: David Soto MD 08/19/2024 08:59 AM EDT RP
--- OUTSIDE RECORDS SUMMARY | 2024-08-18 08:22 | XMS_ITS | Clinical Summary ---
Author Organization [facility] Address [address] [place] [address] Care Team Providers Care Property Condition Assessor Name Role Phone Cy Grider J Primary Care Provider [phone] Allergies Active Allergy Reactions Criticality Noted Date Comments Latex 05/20/2023 Nsaids 05/20/2023 Nuts 05/20/2023 Seafood 05/20/2023 Shellfish Allergy 05/20/2023 Medications Medication Sig Dispensed Refills Start Date End Date Status EPINEPHrine 0.3 MG/0.3ML SOAJ Inject 0.3 mL (0.3 mg total) into the muscle once. 0 Active levocetirizine (XYZAL) 5 MG tablet Take 1 tablet (5 mg total) by mouth every evening. 0 Active acetaminophen (TYLENOL EXTRA STRENGTH) 500 MG tablet Take 1 tablet (500 mg total) by mouth every 6 (six) hours as needed. 0 Active Active Problems No known active problems Social History Tobacco Use Types Packs/Day Years Used Date Smoking Tobacco: Never Smokeless Tobacco: Never Tobacco Cessation:Counseling Given: Not Answered Alcohol Use Standard Drinks/Week Comments Yes 0 (1 standard drink = 0.6 oz pur e alcohol) 1 to 2 drinks per YR @ Most Sex and Gender Information Value Date Recorded Sex Assigned at Not on file Gender Identity Not on file Sexual Orientation Not on file Job Start Date Occupation Industry Not on file Not on file Not on file Last Filed Vital Signs Vital Sign Reading Time Taken Comments Blood Pressure 127/73 07/17/2023 9:41 AM EDT Pulse 64 07/17/2023 9:41 AM EDT Temperature 36.7 ??C (98.1 ??F) 07/17/2023 9:41 AM ED T Respiratory Rate - - Oxygen Saturation 100% 07/17/2023 9:41 AM EDT Inhaled Oxygen Concentration - - Weight 56.7 kg (125 lb) 07/17/2023 9:41 AM EDT Height 157.5 cm (5' 2 ) 07/17/2023 9:41 AM EDT Body Mass Index 22.86 07/17/2023 9:41 AM EDT Plan of Treatment Health Maintenance Due Date Last Done Comments Hepatitis B Vaccines (1 of 3 - 3-dose series) 1978 Hepatitis C Screening 1978 Depression Screening 1990 Preventative Health Evaluation 1996 Cervical Cancer Screening (Pap Smear) 08/22/1999 DTap / Tdap / Td (2 - Td or Tdap) 06/04/2020 06/04/2010 Colon Cancer Screening (Colonoscopy) 08/22/2023 COVID-19 Vaccine (2023-2 5 season) 2023 09/25/2020, 09/05/2020 Influenza Vaccine (#1) 2023 02/07/2014 Pneumococcal Vaccine Aged Out No long er eligible based on patient's age to complete this topic RSV Ped < 20 months Aged Out No longe r eligible based on patient's age to complete this topic Care Teams Property Condition Assessor Relationship Specialty Start Date End Date Cy Grider [address] [facility] [place] [address] PCP - General Family Medicine 05/04/23
--- OUTSIDE RECORDS SUMMARY | 2024-08-18 08:23 | XMS_ITS | Clinical Summary ---
Author Organization [facility] Address [address] [place] [address] Phone Care Team Providers Care Pressfitter Name Role Phone Cy Grider NP Primary Care Provider [phone] Allergies Active Allergy Reactions Criticality Noted Date [...] Vitamin D deficiency 09/06/2014 Allergic rhinitis 03/29/2010 Immunizations Name Administration Dates Next Due Influenza trivalent, 0.5mL, preservative free (Fluarix; FluLaval; Fluzone) ages 6mo and older (Afluria) 3 years and older 02/07/2014 Tdap Tetanus diptheria acell ular pertussis (Boostrix; Adacel) 7yo and older 06/04/2010 Surgical History Surgery Date Site/Laterality Comments SECTION 02/17/2006 PROCEDURE: HISTORICAL ESOPHAGOGASTRODUODENOSCOPY 06/28/2015 PROCEDURE: [place] ESOPHAGOGASTRODUODENOSCOPY TRANSORAL DIAGNOSTIC; COMMENT: Hiatal hernia, otherwise normal. gastric biopsy taken OTHER SURGICAL HISTORY 05/13/2017 PROCEDURE: NE LAPT RPR PARAESOPH HIATAL HERNIA W/MESH BREAST BIOPSY Right PROCEDURE: NE BX BREAST W/DEVICE 1ST LESION ULTRASOUND GUID; [...] DX:Recurrent urticaria Angioedema 05/05/2017 DX:Angioedema Breast cancer ([facility] V24, [facility] V28) Family History Medical History Relation Name Comments Uterine cancer Aunt 1 paternal Stroke Aunt 2 maternal Hyperlipidemia Brother x 1 Cataracts Father Other: Lupus Father alcohol, arthri tis, HTN, depression Alcohol abuse Maternal Grandfather liver cirrhosis Diabetes Maternal Grandmother hyperte nsion, [place] Other: consanguinity Mother Coronary artery disease Paternal [...] PM EDT Office Visit Breast Care Center [facility] [address] [place] [phone] Missy Celestin MD [address] [place] [address] Health Maintenance Due Date Last Done Comments [...] 04/11/2021, 09/25/2020, Additional history exists Influenza Vaccine (Season Ended) 2024 02/07/2014 Cholesterol Screening (Lipid Panel) 06/09/2025 06/09/2020 Breast Cancer Screening 05/04/2026 05/04/19 25, 04/07/2023, 04/07/2023, Additional history exists Cervical Cancer [...] age to complete this topic Meningococcal B Vaccine Aged Out No l onger eligible based on patient's age to complete [...] Signed Date: 05/04/2024 15:00 ET Workstation ID: [id number] Transcribed By: Self Edit Transcribed Date: 05/04/2024 [...] Tomosynthesis. Computer-aided detection was employed with the [employer] AI 3-D. 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
== END 2024-08-18 08:11 | disposition home or self-care (01) ==
LOC: HO.HMGCX 08:10
PROVIDERS: PCP Nurse Practitioner Family; Visit Provider Nurse Practitioner Family
DX: E06.3 Autoimmune thyroiditis (principal)
CPT/HCPCS: 76536

== ENCOUNTER → 2024-08-18 08:15 | Outpatient (BNV) | payer OTHER, SELFPAY | PROVIDERS: PCP Nurse Practitioner Family; Visit Provider Radiology Diagnostic Radiology | DX: E06.3 Autoimmune thyroiditis (principal); E04.2 Nontoxic multinodular goiter | CPT/HCPCS: 76536 ==

== ENCOUNTER 2024-09-17 06:38 | Outpatient (REF) | payer OTHER, SELFPAY ==
--- OUTSIDE RECORDS SUMMARY | 2024-09-17 06:40 | XMS_ITS | Clinical Summary ---
Author Organization [facility] Address [address] [place] [address] Care Team Providers Care Lead Informatica Developer Name Role Phone Cy Grider J Primary Care Provider [phone] Allergies Active Allergy Reactions Criticality Noted Date [...] age to complete this topic Care Teams Lead Informatica Developer Relationship Specialty Start Date End Date Cy Grider [address] [facility] [place] [address] PCP - General Family Medicine 05/04/23
[2024-09-17 11:05] LABS: MANUAL DIFF FLAG NO
[2024-09-17 11:09] LABS: Basophils Percent Auto 1.1 % (0-2); Eosinophils Absolute Auto 0.1 X10*3/uL (0.0-0.4); Eosinophils Percent Auto 2.7 % (0-4); Hematocrit 35.4 % (37.0-47.0); Hemoglobin 11.6 g/dl (12.0-16.0); Imm Gran Abs Auto 0.01 X10*3/uL (0.00-0.03); Imm Gran Pct Auto 0.3 % (0.0-0.4); Lymphocytes Percent Auto 27.5 % (20-40); Mean Corpuscular HGB Conc 32.8 g/dl (31.0-35.0); Mean Corpuscular Hemoglobin 29.1 pg (27.0-33.0); Mean Corpuscular Volume 88.7 fL (80.0-98.0); Mean Platelet Volume 10.9 fL (9.4-12.3); Monocytes Absolute Auto 0.5 X10*3/uL (0.1-1.2); Monocytes Percent Auto 12.5 % (2-11); Neutrophils Absolute Auto 2.1 x10*3/uL (2.0-8.3); Neutrophils Percent Auto 55.9 % (45-73); Platelet Count 249 X10*3/uL (160-400); Red Blood Count 3.99 X10*6/uL (4.20-5.50); Red Cell Distribution Width 14.8 % (11.0-16.0); White Blood Count 3.7 X10*3/uL (4.8-10.8)
[2024-09-17 11:25] LABS: Alanine Aminotransferase 12 U/L (0-31); Albumin Level 4.1 g/dL (3.5-5.0); Alkaline Phosphatase 50 U/L (39-117); Anion Gap 11 (12-20); Aspartate Amino Transferase 22 U/L (5-31); Bilirubin Total 0.5 mg/dL (0.0-1.0); Blood Urea Nitrogen 15 mg/dL (9-16); Calcium 8.8 mg/dL (8.4-10.2); Carbon Dioxide 24 mmol/L (22-29); Chloride 106 mmol/L (96-108); Estimated Glomerular Filt Rate > 60; Glucose Random 82 mg/dL (60-115); Sodium 137 mmol/L (135-145); Total Protein 7.4 g/dL (6.5-8.0)
== END 2024-09-17 06:39 | disposition home or self-care (01) ==
LOC: HO.HMGCLDS 06:38
PROVIDERS: PCP Nurse Practitioner Family; Visit Provider Nurse Practitioner Family
DX: D72.819 Decreased white blood cell count, unspecified (principal)
CPT/HCPCS: 36415; 80053; 85025

== ENCOUNTER 2024-12-12 09:32 | Outpatient (REF) | payer OTHER, SELFPAY ==
--- OUTSIDE RECORDS SUMMARY | 2024-12-12 10:06 | XMS_ITS | Clinical Summary ---
Author Organization [facility] Address [address] [place] [address] Care Team Providers Care Freight Breaker Name Role Phone Cy Grider J Primary Care Provider [phone] Allergies Active Allergy Reactions Criticality Noted Date [...] 64 07/17/2023 9:41 AM EDT Temperature 36.7 C (98.1 F) 07/17/2023 9:41 AM EDT Respiratory Rate - - Oxygen Saturation 100% [...] season) 2023 09/25/2020, 09/05/2020 Influenza Vaccine (#1) 2024 02/07/2014 Pneumococcal Vaccine Aged Out No long er eligible based on patient's age to complete this topic RSV Ped < 20 months Aged Out No longe r eligible based on patient's age to complete this topic Care Teams Freight Breaker Relationship Specialty Start Date End Date Cy Grider [address] [place] [address] PCP - General Family Medicine 05/04/23
--- OUTSIDE RECORDS SUMMARY | 2024-12-12 10:06 | XMS_ITS | Clinical Summary ---
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 Use as directed 07/19/2020 Active levocetirizine (XYZAL) 5 mg tablet Take 1 tablet (5 mg total) by mouth. Active acetaminophen (TYLENOL) 500 mg tablet Take 1 tablet (500 mg total) by mouth every 6 hours as needed. Active Active Problems Problem Noted Date Diagnosed Date Trace mitral valve regurgitation 04/11/2021 Overview (03/10/2024): Trace-mild mitral regurg seen on echo 04/08/21 Adverse food reaction 10/27/2017 Perennial allergic rhinitis 10/27/2017 Angioedema 05/05/2017 Recurrent urticaria 05/05/2017 Fibromyalgia 09/13/2014 GERD (gastroesophageal reflux disease) 5 Fatigue 09/06/2014 Vitamin D deficiency 09/06/2014 Seasonal allergic rhinitis 03/29/2010 Encounters Date Type Department Care Team Description 11/29/2024 8:53 AM EDT - 11/29/2024 11:59 PM EDT Hospital Encounter Radiology Department - [address] [phone] History of invasive breast cancer; History of therapeutic radiation; FHx: breast cancer; Extremely dense tissue of both breasts on mammography Discharge Disposition: Home or Self Care 10/12/2024 2:00 PM EDT Office Visit [facility] - [address] [phone] Missy Celestin MD History of invasive breast cancer (Primary Dx); History of therapeutic radiation; FHx: breast cancer; Extremely dense tissue of both breasts on mammography from Last 3 Months Immunizations Name Administration Dates Next Due Influenza trivalent, 0.5mL, preservative free (Fluarix; FluLaval; Fluzone) ages 6mo and older (Afluria) 3 years and older 02/07/2014 Tdap Tetanus diptheria acell ular pertussis (Boostrix; Adacel) 7yo and older 06/04/2010 Surgical History Surgery Date Site/Laterality Comments SECTION 02/17/2006 PROCEDURE: HISTORICAL ESOPHAGOGASTRODUODENOSCOPY 06/28/2015 PROCEDURE: NC ESOPHAGOGASTRODUODENOSCOPY TRANSORAL DIAGNOSTIC; COMMENT: Hiatal hernia, otherwise normal. gastric biopsy taken OTHER SURGICAL HISTORY 05/13/2017 PROCEDURE: NC LAPT RPR PARAESOPH HIATAL HERNIA W/MESH BREAST BIOPSY Right PROCEDURE: NC BX BREAST W/DEVICE 1ST LESION ULTRASOUND GUID; [...] DX:Recurrent urticaria Angioedema 05/05/2017 DX:Angioedema Breast cancer ([facility]/HCC V24, CMS/HCC V28) Family History Medical History Relation Name Comments Uterine cancer Aunt 1 paternal Stroke Aunt 2 maternal Hyperlipidemia Brother x 1 Cataracts Father Other: Lupus Father alcohol, arthri tis, HTN, depression Alcohol abuse Maternal Grandfather liver cirrhosis Diabetes Maternal Grandmother hyperte nsion, [place] Other: consanguinity Mother Coronary artery disease Paternal [...] Sign Reading Time Taken Comments Blood Pressure 125/74 10/12/2024 1:57 PM EDT Pulse 60 10/12/2024 1:57 PM EDT Temperature 36.4 C (97.5 F) 10/12/2024 1:57 PM EDT Respiratory Rate - - Oxygen Saturation - - Inhaled Oxygen Concentration - - Weight 54.4 kg (120 lb) 10/12/2024 1:57 PM EDT Height 157.5 cm (5' 2 ) 05/04/2024 2:10 PM EST Body Mass Index 21.95 05/04/2024 2:10 PM EST Plan of Treatment Upcoming Encounters Date Type Department Care Team (Late st Contact Info) Description 04/26/2025 1:30 PM EST Office Visit Breast Care Center [facility] [address] [place] [address] Missy Celestin MD [address] [facility] [address] [place] [address] Health Maintenance Due Date Last Done Comments Hepatitis B Vaccines (1 of 3 - 19+ 3-dose series) 1997 Pneumococcal Vaccine: Pediatrics (0 to 5 Years) and At-Risk Patients (6 to 49 Years) (1 of 2 - PCV) 1997 Colorectal Cancer Screening: Colonoscopy 04/05/2022 HIV Screening 04/05/2022 Hepatitis C Screening 04/05/2022 Social Influencers of Health Screening 04/05/2022 COVID-19 Vaccine ( season) 2023 04/24/2022, 04/11/2021, 09/25/2020, Additional history exists Depression Screening 04/27/2024 Influenza Vaccine (#1) 2024 02/07/2014 Cholesterol Screening (Lipid Panel) 06/09/2025 [...] Procedure Name Priority Date/Time Associated Diagnosis Comments MR BREAST WO AND W CONTRAST BILAT Routine 11/29/2024 10:21 AM EDT History of invasive breast cancer History of therapeutic radiation FHx: breast cancer Extremely dense tissue of both breasts on mammography MG MAMMO DIGITAL DIAGNOSTIC W GERONIMO BILAT Routine 05/04/2024 3:05 PM EST History of invasive breast cancer HM HPV Routine 05/28/2023 LIPID PANEL Routine 06/09/2020 from Last 3 Months or Most Recently Relevant to Health Maintenance Results * MR Breast wo and w Contrast bilat (11/29/2024 10:21 AM EDT) Anatomical Region Laterality Modality Breast Bilateral Magnetic Resonan ce 12/06/2024 8:2 0 AM EDT Impressions 12/06/2024 8:44 AM EDT No MRI evidence of malignancy. BI-RADS CATEGORY: 2 - BENIGN RECOMMENDATION: MRI of bilateral breasts is recommended in 1 year. 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 Also, status post radiation therapy. History of extremely dense breast parenchyma. COMPARISON: None CORRELATION: Mammography exams, most recent 05/04/2024 TECHNIQUE: Exam performed on a 1.5 Nickie high-field MRI scanner. Multiplanar multiphasic MRI performed without and with contrast using department protocol. Exam is reviewed on CAD workstation with enhancement curves plotting, 3-D multi-planar reformatted and angiographic MIP images obtained. 20 cc of Dotarem administered intravenously. Exam is reviewed on CAD workstation with enhancement curves plotting, 3-D multi-planar reformatted and angiographic MIP images obtained. FINDINGS: Breast parenchyma is extremely dense with mild background parenchymal enhancement. RIGHT BREAST: No morphologically or kinetically suspicious finding. Multiple scattered cysts measuring up to 1.0 cm in the outer breast at the 9:00 position. No nipple abnormality identified. LEFT BREAST: Lumpectomy changes in the inner breast. No suspicious enhancement at the lumpectomy site. No morphologically or kinetically suspicious finding. No nipple abnormality identified. OTHER: No axillary lymphadenopathy. Procedure Note Mckenna Casey MD - 12/06/2024 HISTORY: History of left breast high-grade DCIS status post lumpectomy on05/07/2023. Also, status post radiation therapy. History of extremely densebreast parenchyma. COMPARISON: None CORRELATION: Mammography exams, most recent 05/04/2024 TECHNIQUE: Exam performed on a 1.5 Nickie high-field MRI scanner.Multiplanar multiphasic MRI [facility]. Exam is reviewed on CAD workstation with enhancementcurves plotting, 3-D multi-planar reformatted and angiographic MIP imagesobtained. 20 cc of Dotarem administered intravenously. Exam is reviewed on CAD workstation with enhancement curves plotting, [id number] reformatted and angiographic MIP images obtained. FINDINGS: Breast parenchyma is extremely dense with mild background parenchymalenhancement. RIGHT BREAST: No morphologically or kinetically suspicious finding.Multiple scattered cysts measuring up to 1.0 cm in the outer breast at the9:00 position. No nipple abnormality identified. LEFT BREAST: Lumpectomy changes in the inner breast. No suspiciousenhancement at the lumpectomy site. No morphologically or kineticallysuspicious finding. No nipple abnormality identified. OTHER: No axillary lymphadenopathy. IMPRESSION: No MRI evidence of malignancy. BI-RADS CATEGORY: 2 - BENIGN RECOMMENDATION: MRI of bilateral breasts is recommended in 1 year. POS -[id number] -------- FINAL REPORT -------- Dictated By: Mckenna Casey Dictated Date: 12/06/2024 08:20 ET Assigned Physician: Mckenna Casey Reviewed and Electronically Signed By: Mckenna Casey Signed Date: 12/06/2024 08:44 ET Workstation ID: [id number] Transcribed By: Self Edit Transcribed Date: 12/06/2024 08:20 ET us Missy Celestin MD IMG MRI PROCEDURES Shadia l Result * MG Mammo Digital Diagnostic w Geronimo [...] or alter the indications for biopsy. ASSESSMENT: BI-RADS 3: PROBABLY BENIGN RECOMMENDATION(S): 1: Follow-up diagnostic mammogram BILATERAL in 1 year. -------- FINAL REPORT -------- Dictated By: Dakota Juárez Dictated Date: 05/04/2024 14:50 ET Assigned Physician: Dakota Juárez Reviewed and Electronically Signed By: Dakota Juárez Signed Date: 05/04/2024 15:00 ET Workstation ID: [id number] Transcribed By: Self Edit Transcribed Date: 05/04/2024 14:50 ET Narrative 05/04/2024 3:00 PM EST EXAM: DIAGNOSTIC MAMMOGRAPHY, BILATERAL HISTORY: Personal history of DCIS left breast. Left lumpectomy. Breast pain. Calcifications elsewhere in the left breast. COMPARISON: 05/07/2023, 03/31/2023, 09/12/2022, 03/12/2022, 03/05/2021 TECHNIQUE: Synthesized CC and MLO projections of each breast. Tomosynthesis of each breast in the CC and MLO projections. ADDITIONAL IMAGING: Spot magnified views of the left breast in multiple projections. Craniocaudal view of the left breast exaggerated medially using Tomosynthesis. Computer-aided detection was employed with the [employer] [facility] profound AI 3-D. TISSUE DENSITY: The breasts are extremely dense, which lowers the sensitivity of mammography. (BI-RADS category D) FINDINGS: RIGHT BREAST: No suspicious mass. No suspicious calcification. No distortion. No additional suspicious right breast findings LEFT BREAST: There has been interval lumpectomy and there are surgical clips present. There are some additional calcifications in the outer left breast. No suspicious interval change. These should be monitored with diagnostic mammography in [...] Tomosynthesis. Computer-aided detection was employed with the [employer] [facility] profound AI 3-D. 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
[2024-12-12 13:16] LABS: MANUAL DIFF FLAG NO
[2024-12-12 13:20] LABS: Hematocrit 36.2 % (37.0-47.0); Hemoglobin 12.1 g/dl (12.0-16.0); Imm Gran Abs Auto 0.02 X10*3/uL (0.00-0.03); Imm Gran Pct Auto 0.4 % (0.0-0.4); Lymphocytes Absolute Auto 1.3 X10*3/uL (1.2-4.9); Mean Corpuscular HGB Conc 33.4 g/dl (31.0-35.0); Mean Corpuscular Hemoglobin 30.0 pg (27.0-33.0); Mean Corpuscular Volume 89.6 fL (80.0-98.0); NRBC Abs Auto 0.000 X10*3/uL (0.0-0.012); NRBC Pct Auto 0.0 /100WBC (0.0-0.2); Platelet Count 265 X10*3/uL (160-400); Red Blood Count 4.04 X10*6/uL (4.20-5.50); White Blood Count 5.0 X10*3/uL (4.8-10.8)
== END 2024-12-12 09:33 | disposition home or self-care (01) ==
LOC: HO.HMGCLDS 09:32
PROVIDERS: PCP Nurse Practitioner Family; Visit Provider Nurse Practitioner Family
DX: D72.819 Decreased white blood cell count, unspecified (principal)
CPT/HCPCS: 36415; 85025